=== PATIENT | female | born 1955 | race Caucasian/White ===

== ENCOUNTER 2023-04-29 09:14 | Emergency (ER) | payer OTHER, SELFPAY ==
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
[2023-04-29 09:57] VITALS: BP 122/70; BP 135/72; PULSE 82; PULSE 88; RESP 18; TEMP 36.2; O2SAT 97; O2SAT 98; BMI 29.2
--- NOTE | 2023-04-29 10:00 | MHC.CARE ---
Called [facility] and spoke with Michael. They report that she has been trying to get back into their [facility]. She has been yelling and pressured calling [facility]. She was seen by [facility] crisis 04/26 an admitted to respite 04/27. She was there for 10 hours and asked to d/c to [facility] for a dentist appt. She was not accepted back to [facility] and has since been acutely agitated. She is not known to be someone who drinks alcohol or uses substances other than THC. [facility] observes her having OP through the [employer] office but perhaps being a no show recently. She is diagnosed with Major Depressive D/O, at times w psychotic features. She has a rule out Bipolar D/o.
[2023-04-29 10:08] LABS: MANUAL DIFF FLAG NO
[2023-04-29 10:09] LABS: Basophils Absolute Auto 0.1 X10*3/uL (0.0-0.2); Eosinophils Absolute Auto 0.1 X10*3/uL (0.0-0.4); Eosinophils Percent Auto 2.1 % (0-4); Hematocrit 35.7 % (37.0-47.0); Hemoglobin 11.9 g/dl (12.0-16.0); Imm Gran Abs Auto 0.01 X10*3/uL (0.00-0.03); Imm Gran Pct Auto 0.2 % (0.0-0.4); Lymphocytes Absolute Auto 1.2 X10*3/uL (1.2-4.9); Mean Corpuscular HGB Conc 33.3 g/dl (31.0-35.0); Mean Corpuscular Hemoglobin 29.2 pg (27.0-33.0); Mean Corpuscular Volume 87.7 fL (80.0-98.0); Mean Platelet Volume 9.9 fL (9.4-12.3); Monocytes Absolute Auto 0.5 X10*3/uL (0.1-1.2); Monocytes Percent Auto 9.2 % (2-11); Neutrophils Absolute Auto 3.3 x10*3/uL (2.0-8.3); Neutrophils Percent Auto 63.5 % (45-73); Platelet Count 243 X10*3/uL (160-400); Red Blood Count 4.07 X10*6/uL (4.20-5.50); White Blood Count 5.1 X10*3/uL (4.8-10.8)
[2023-04-29 10:11] LABS: Appearance Urine Clear; Color Urine Dark Yellow; Glucose Urine UA Negative (Negative); Leukocyte Esterase Urine Small (1+) (Negative); Nitrite Urine Negative (Negative); PH 5.5 (5.0-9.0); Specific Gravity - Urine >= 1.030 (1.005-1.025); UMIC TRIGGER UACC YES; Urine Blood Negative (Negative); Urine Ketones Trace mg/dL (Negative); Urine Protein Trace mg/dL (Neg-Trace)
[2023-04-29 10:17] LABS: Amphetamine Screen Urine Not Detected (Not Detect); Barbiturates, Urine Not Detected (Not Detect); Benzodiazepines Screen Urine Not Detected (Not Detect); Cannabinoid Screen Urine POSITIVE (Not Detect); Cocaine Screen Urine Not Detected (Not Detect); Fentanyl, urine Not Detected (Not Detect); Opiate Screen Urine POSITIVE (Not Detect); Phencyclidine Screen Urine Not Detected (Not Detect)
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
[2023-04-29 10:24] LABS: Alanine Aminotransferase 26 U/L (0-31); Albumin Level 3.9 g/dL (3.5-5.0); Alkaline Phosphatase 78 U/L (39-117); Anion Gap 11 (12-20); Aspartate Amino Transferase 27 U/L (5-31); Bilirubin Direct 0.2 mg/dL (0.0-0.5); Bilirubin Total 0.4 mg/dL (0.0-1.0); Blood Urea Nitrogen 8 mg/dL (9-16); Carbon Dioxide 25 mmol/L (22-29); Chloride 109 mmol/L (96-108); Creatinine Clr Calc Pharmacy 61.2; Estimated Glomerular Filt Rate > 60; Ethanol 31 mg/dL; Glucose Random 115 mg/dL (60-115); Magnesium 2.2 mg/dL (1.6-2.6); Potassium 3.4 mmol/L (3.3-5.1); Sodium 142 mmol/L (135-145); Total Protein 6.3 g/dL (6.5-8.0)
[2023-04-29 10:31] LABS: Bacteria Urine None Seen (None Seen); Calcium Oxalate Crystals Urine Present; RBC Urine 0-2 /HPF (0-2); UACC Culture Trigger YES
--- NOTE | 2023-04-29 10:34 | PC.NURSE ---
client declined offered tylenol
--- NOTE | 2023-04-29 10:38 | PC.NURSE ---
over the counter medications have no effect on me
[2023-04-29 10:45] LABS: COVID-19 Test Negative (Negative); IDNOW Serial# BCCEAD1C
== END 2023-04-29 14:56 | disposition home or self-care (01) ==
PROVIDERS: Emergency Provider Emergency Medicine
DX: F33.1 Major depressive disorder, recurrent, moderate (principal); F17.200 Nicotine dependence, unspecified, uncomplicated; Z11.52 Encounter for screening for COVID-19; Z20.822 Contact with and (suspected) exposure to COVID-19; Z71.6 Tobacco abuse counseling; Z79.899 Other long term (current) drug therapy
CPT/HCPCS: 80048; 80076; 80307; 81001; 83735; 85025; 87086; 87635; 99284; S9485

== ENCOUNTER 2023-06-02 13:49 | Outpatient (AMB) | payer OTHER, SELFPAY ==
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
[2023-06-02 14:06] VITALS: BP 138/80; PULSE 79; O2SAT 97; BMI 30.3
== END 2023-06-02 14:43 | disposition home or self-care (01) ==
PROVIDERS: PCP Physician Assistant; Visit Provider Nurse Practitioner Family
DX: M54.6 Pain in thoracic spine (principal); G89.29 Other chronic pain; M54.50 Low back pain, unspecified; M53.3 Sacrococcygeal disorders, not elsewhere classified
CPT/HCPCS: 99204

== ENCOUNTER → 2023-06-02 13:49 | Outpatient (BNVA) | payer OTHER, SELFPAY | PROVIDERS: PCP Physician Assistant; Visit Provider Nurse Practitioner Family | DX: M54.6 Pain in thoracic spine (principal); M51.36 Other intervertebral disc degeneration, lumbar region; M53.3 Sacrococcygeal disorders, not elsewhere classified; G89.29 Other chronic pain | CPT/HCPCS: 99202 ==

== ENCOUNTER 2023-07-12 13:13 | Outpatient (AMB) | payer OTHER, SELFPAY ==
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
[2023-07-12 13:14] VITALS: BMI 28.5
== END 2023-07-12 13:54 | disposition home or self-care (01) ==
LOC: HO.PMC 13:13
PROVIDERS: PCP Physician Assistant; Visit Provider Nurse Practitioner Family
DX: M54.6 Pain in thoracic spine (principal); G89.29 Other chronic pain; M54.50 Low back pain, unspecified; M53.3 Sacrococcygeal disorders, not elsewhere classified; G62.9 Polyneuropathy, unspecified
CPT/HCPCS: 99442

== ENCOUNTER → 2023-07-12 13:13 | Outpatient (BNVA) | payer OTHER, SELFPAY | PROVIDERS: PCP Physician Assistant; Visit Provider Nurse Practitioner Family ==

== ENCOUNTER 2023-07-30 10:12 | Inpatient (IN) | payer MEDICARE, MEDICAID, SELFPAY ==
[2023-07-30 10:19] VITALS: BP 103/73; PULSE 84; RESP 18; TEMP 36.3; O2SAT 97; BMI 26.6
[2023-07-30 10:54] LABS: MANUAL DIFF FLAG NO
[2023-07-30 10:58] LABS: Appearance Urine Clear; Color Urine Yellow; Glucose Urine UA Negative (Negative); Leukocyte Esterase Urine Negative (Negative); Nitrite Urine Negative (Negative); PH 6.5 (5.0-9.0); Specific Gravity - Urine <= 1.005 (1.005-1.025); Urine Blood Negative (Negative); Urine Ketones Negative (Negative); Urine Protein Negative (Neg-Trace)
[2023-07-30 10:59] LABS: Basophils Percent Auto 0.6 % (0-2); Eosinophils Absolute Auto 0.2 X10*3/uL (0.0-0.4); Eosinophils Percent Auto 3.4 % (0-4); Hematocrit 35.9 % (37.0-47.0); Hemoglobin 12.3 g/dl (12.0-16.0); Imm Gran Abs Auto 0.01 X10*3/uL (0.00-0.03); Imm Gran Pct Auto 0.2 % (0.0-0.4); Lymphocytes Absolute Auto 1.9 X10*3/uL (1.2-4.9); Lymphocytes Percent Auto 38.8 % (20-40); Mean Corpuscular HGB Conc 34.3 g/dl (31.0-35.0); Mean Corpuscular Hemoglobin 29.7 pg (27.0-33.0); Mean Corpuscular Volume 86.7 fL (80.0-98.0); Mean Platelet Volume 9.4 fL (9.4-12.3); Monocytes Absolute Auto 0.4 X10*3/uL (0.1-1.2); Neutrophils Absolute Auto 2.4 x10*3/uL (2.0-8.3); Platelet Count 309 X10*3/uL (160-400); Red Blood Count 4.14 X10*6/uL (4.20-5.50); Red Cell Distribution Width 13.9 % (11.0-16.0)
[2023-07-30 11:00] LABS: Bacteria Urine None Seen (None Seen); Hyaline Casts Urine 0-2 /LPF (0-2); RBC Urine 0-2 /HPF (0-2); WBC Urine 0-5 /HPF (0-5)
[2023-07-30 11:07] LABS: Amphetamine Screen Urine Not Detected (Not Detect); Barbiturates, Urine Not Detected (Not Detect); Benzodiazepines Screen Urine Not Detected (Not Detect); Cannabinoid Screen Urine POSITIVE (Not Detect); Cocaine Screen Urine Not Detected (Not Detect); Fentanyl, urine Not Detected (Not Detect); Opiate Screen Urine Not Detected (Not Detect); Phencyclidine Screen Urine Not Detected (Not Detect)
[2023-07-30 11:09] LABS: Alanine Aminotransferase 12 U/L (0-31); Alkaline Phosphatase 64 U/L (39-117); Anion Gap 10 (12-20); Aspartate Amino Transferase 14 U/L (5-31); Bilirubin Total 0.4 mg/dL (0.0-1.0); Blood Urea Nitrogen 11 mg/dL (9-16); Calcium 9.3 mg/dL (8.4-10.2); Carbon Dioxide 26 mmol/L (22-29); Chloride 109 mmol/L (96-108); Creatinine Clr Calc Pharmacy 65.5; Estimated Glomerular Filt Rate > 60; Ethanol 19 mg/dL; Glucose Random 90 mg/dL (60-115); Potassium 3.7 mmol/L (3.3-5.1); Sodium 141 mmol/L (135-145); Total Protein 6.3 g/dL (6.5-8.0)
[2023-07-30 11:28] LABS: Acetaminophen LAB < 3 mcg/mL (<30); Salicylate < 5.0 mg/dL (15-30)
[2023-07-30 11:30] LABS: COVID-19 Test Negative (Negative); IDNOW Serial# 08D9AD1C
--- NOTE | 2023-07-30 12:12 | ED_ITS ---
HPI - Psych General Chief Complaint: Psychiatric Symptoms Stated Complaint: Crisis Time Seen by Provider: 07/30/23 12:09 Source: patient and RN notes reviewed Mode of arrival: ambulatory Limitations: no limitations History of Present Illness HPI Narrative: This is a 68-year-old female, with a past history of depression, COPD, and history of breast cancer currently in remission presenting to the emergency department due to feeling very depressed. Patient states that over the last several months she has been struggling due to her daughter not allowing her to see her grandchild as she smokes marijuana every once in awhile. She denies any suicidal or homicidal ideations. No visual or auditory hallucinations. She also reports that she has not been eating as much due to her feeling as though she has lots of stress. Denies any fevers, chills, chest pain, shortness breast, abdominal pain, nausea, vomiting or diarrhea. She states that she drank alcohol last night, she does not drink alcohol regularly, denies any other drug use. She has a smoker, smokes 1 pack of cigarettes per day. No other complaints or concerns at this time. MD complaint: feels depressed Duration: constant History of same: No Relieving factors: none Exacerbating factors: none Associated symptoms: denies other symptoms Treatments prior to arrival: none Related Data Home Medications Medication Instructions Recorded Confirmed albuterol sulfate 90 mcg/actuation 2 puff inhalation Q4H PRN dyspnea 07/30/23 07/30/23 aerosol inhaler (Ventolin HFA) fluticasone fur. 200 mcg-umeclid 1 ea inhalation DAILY 07/30/23 07/30/23 62.5 mcg-vilant 25 mcg inhalat.powder (Trelegy Ellipta) naproxen 500 mg tablet 500 mg PO BID PRN pain 07/30/23 07/30/23 nicotine 21 mg/24 hr daily 1 patch topical DAILY 07/30/23 07/30/23 transdermal patch quetiapine 25 mg tablet 25 mg PO BID 07/30/23 07/30/23 Allergies Allergy/AdvReac Type Severity Reaction Status Date / Time acetaminophen [From Percocet] Allergy Unknown Itching Verified 07/12/23 13:15 olanzapine Allergy Unknown other Verified 07/12/23 13:15 oxycodone [From Percocet] Allergy Unknown Itching Verified 07/12/23 13:15 Review of Systems 2 Review of Systems: Yes all other systems are reviewed and are negative Constitutional: Constitutional: Reports as per [facility] Past Medical History Attestation statement: The following information was validated with the patient. Medical History Lumbar degenerative disc disease Chronic thoracic spine pain Depression UTI (urinary tract infection) COPD (chronic obstructive pulmonary disease) Surgical History H/O lumpectomy Social History Social History Alcohol intake: current Patient Tobacco Use Status: Current everyday Tobacco user Tobacco use type: Cigarette Cigarette Packs Per Day: 0.5 Substance Use Type: Crack/Cocaine and Marijuana Advance Directives: No Advance Directives Information Provided: No Healthcare Proxy: Yes Guardian: No Physical Exam 2 Vital Signs: Vital Signs: Last Vital Signs Temp 97 F 07/30/23 20:54 Pulse 88 07/30/23 20:54 Resp 17 07/30/23 20:54 BP 123/77 07/30/23 20:54 Pulse Ox 97 07/30/23 20:54 O2 Del Method Room Air 07/30/23 20:54 BMI result Body Mass Index 26.6 Const: General: cooperative, comfortable and no acute distress O rientation/consciousness: patient oriented x3 Limitations: no limitations HEENT: Head: Yes normal to inspection, Yes normocephalic and Yes atraumatic Ears: hearing grossly normal bilaterally General nose exam: Normal external nose present Face and sinus: Yes normal facial exam Mouth: Normal oral and palatal mucosa present, oropharynx normal and moist mucous membranes Throat: Yes posterior oropharynx normal Eyes: General: appearance normal, both eyes and all related structures E yelids: Yes eyelids normal Conjunctivae: conjunctivae normal Sclerae: s clerae normal Pupils: Equal, round and reactive pupils present EOM: EOMs intact bilaterally Neck: Neck: Yes normal visual inspection, Yes full ROM and Yes no lymphadenopathy Lymphatic: no lymphadenopathy noted Chest: Chest palpation & inspection: normal inspection of the chest Resp: Effort & Inspection: normal respiratory effort and able to speak in complete sentences Auscultation: clear to auscultation bilaterally, no crackles, no rales, no rhonchi and no wheezes Cardio: Rate: regular rate Rhythm: regular rhythm Heart sounds: S1 normal heart sound present and S2 normal heart sound present GI: Other: Abdomen is soft, nontender, nondistended Inspection: Yes normal to inspection Skin: General skin exam: no rashes or lesions noted Trauma: no lacerations or abrasions Wounds: no wounds Neuro: General: patient oriented x3 and moves all extremities Cranial nerves: Yes Equal, round and reactive pupils present Extrem: General: Yes normal to inspection Right upper extremity: normal to inspection Left upper extremity: normal to inspection Right lower extremity: normal to inspection Left lower extremity: normal to inspection Course Reevaluation(s) Reevaluation #1: Continue physician observation, patient is an inpatient bed search and did require medication restrained overnight. She is otherwise clinically stable at this time. Time: 07:25 Medications Administered Generic Name Dose Route Start Last Admin Trade Name Freq PRN Reason Stop Dose Admin Fluticasone/Umeclidinium/Vilanterol 1 puff 07/30/23 16:00 07/30/23 16:05 Fluticasone/Umeclidinium/Vilanterol 200/62.5/25 Blst.W.Dev INHALE Not Given RDAILY DK Lorazepam 2 mg 07/30/23 18:16 07/31/23 04:16 Lorazepam 1 Mg Tablet PO 2 mg Q4H PRN Administration Anxiety, agitation Naproxen 500 mg 07/30/23 15:49 07/30/23 16:12 Naproxen 500 Mg Tablet PO 500 mg BID PRN Administration Pain, Moderate(Pain Scale 4-6) Nicotine 21 mg 07/30/23 16:00 07/30/23 16:04 Nicotine 21 Mg Patch.Td24 TRANSDERMA Not Given DAILY DK Quetiapine Fumarate 25 mg 07/30/23 21:00 07/30/23 20:25 Quetiapine Fumarate 25 Mg Tablet PO Not Given BID DK Discontinued Medications Generic Name Dose Route Start Last Admin Trade Name Freq PRN Reason Stop Dose Admin Haloperidol Lactate 10 mg 07/30/23 20:46 07/30/23 21:04 Haloperidol Lactate 5 Mg/Ml Vial IM 07/30/23 20:47 10 mg STAT STA Administration Lorazepam 2 mg 07/30/23 18:16 07/30/23 18:18 Lorazepam 1 Mg Tablet PO 07/30/23 18:17 2 mg ONCE STA Administration Midazolam HCl 2 mg 07/30/23 20:46 07/30/23 21:02 Midazolam Hcl/Pf 2 Mg/2 Ml Vial IM 07/30/23 20:47 2 mg ONCE ONE Administration Medical Decision Making Medical Decision Making [facility] Narrative: This is a 68-year-old female, with a past history of depression, COPD, and history of breast cancer currently in remission, presenting to the emergency department for evaluation of feeling very depressed. She denies any SI or HI. She does admit to alcohol use last night, but does not drink every day. Denies history of alcohol withdrawal seizures. Endorses using marijuana, no other drugs. On arrival, vital signs within normal limits. She has a normal physical exam. She has not suicidal or homicidal. No SI or HI. She has no physical complaints. Labs were obtain, no leukocytosis, stable H&H, chemistry within normal limits. Urine does not appear to be infected. Positive for marijuana otherwise urine drug screen unremarkable. She tested negative for COVID. Given normal lab workup, and no physical complaints, patient is medically cleared to see the care team. Differential Diagnosis Differential Diagnoses: The differential diagnosis associated with the presentation includes Depression, anxiety, SI, HI, substance use disorder Lab Data [facility] Lab Attestation statement: I reviewed the patient's lab results. No leukocytosis, stable H&H, chemistry within normal limits, UA noninfected. Negative drug screen, COVID negative. 07/30/23 10:48 07/30/23 10:48 Labs: Lab Results 07/30/23 Range/Units 10:48 WBC 5.0 (4.8-10.8) X10*3/uL RBC 4.14 L (4.20-5.50) X10*6/uL Hgb 12.3 (12.0-16.0) g/dl Hct 35.9 L (37.0-47.0) % MCV 86.7 (80.0-98.0) fL MCH 29.7 (27.0-33.0) pg MCHC 34.3 (31.0-35.0) g/dl RDW 13.9 (11.0-16.0) % Plt Count 309 D (160-400) X10*3/uL MPV 9.4 (9.4-12.3) fL Immature Gran % (Auto) 0.2 (0.0-0.4) % Neut % (Auto) 49.0 (45-73) % Lymph % (Auto) 38.8 (20-40) % Nuckolls % (Auto) 8.0 (2-11) % Eos % (Auto) 3.4 (0-4) % Baso % (Auto) 0.6 (0-2) % Lymph # (Auto) 1.9 (1.2-4.9) X10*3/uL Nuckolls # (Auto) 0.4 (0.1-1.2) X10*3/uL Eos # (Auto) 0.2 (0.0-0.4) X10*3/uL Baso # (Auto) 0.0 (0.0-0.2) X10*3/uL Abs Immat Gran (auto) 0.01 (0.00-0.03) X10*3/uL Absolute Neuts (auto) 2.4 (2.0-8.3) x10*3/uL Absolute Nucleated RBC 0.000 (0.0-0.012) X10*3/uL Nucleated RBC % (auto) 0.0 (0.0-0.2) /100WBC Sodium 141 (135-145) mmol/L Potassium 3.7 (3.3-5.1) mmol/L Chloride 109 H (96-108) mmol/L Carbon Dioxide 26 (22-29) mmol/L Anion Gap 10 L (12-20) BUN 11 (9-16) mg/dL Creatinine 0.75 (0.5-1.4) mg/dL Estim Creat Clear Calc 65.5 Estimated GFR > 60 Random Glucose 90 (60-115) mg/dL Calcium 9.3 (8.4-10.2) mg/dL Total Bilirubin 0.4 (0.0-1.0) mg/dL AST 14 (5-31) U/L ALT 12 (0-31) U/L Alkaline Phosphatase 64 (39-117) U/L Total Protein 6.3 L (6.5-8.0) g/dL Albumin 4.0 (3.5-5.0) g/dL Urine Color Yellow Urine Appearance Clear Urine pH 6.5 (5.0-9.0) Ur Specific [place] <= 1.005 (1.005-1.025) Urine Protein Negative (Neg-Trace) mg/dL Urine Glucose (UA) Negative (Negative) mg/dL Urine Ketones Negative (Negative) mg/dL Urine Blood Negative (Negative) Urine Nitrite Negative (Negative) Ur Leukocyte Esterase Negative (Negative) Urine RBC 0-2 (0-2) /HPF Urine WBC 0-5 (0-5) /HPF Ur Squamous Epith Cells 3-5 (0-2) /HPF Urine Bacteria None Seen (None Seen) Hyaline Casts 0-2 (0-2) /LPF Salicylates < 5.0 L (15-30) mg/dL Urine Opiates Screen Not Detected (Not Detect) Urine Fentanyl Screen Not Detected (Not Detect) Acetaminophen < 3 (<30) mcg/mL Ur Barbiturates Screen Not Detected (Not Detect) Ur Phencyclidine Scrn Not Detected (Not Detect) Ur Amphetamines Screen Not Detected (Not Detect) U Benzodiazepines Scrn Not Detected (Not Detect) Urine Cocaine Screen Not Detected (Not Detect) U Marijuana (THC) Screen POSITIVE H (Not Detect) Ethyl Alcohol 19 mg/dL COVID-19 (YULISSA) Negative (Negative) COVID-19 Clin Com See Note Discharge Plan Discharge Clinical Impression: Depression Patient Disposition: Still a Patient Prescriptions: No Action quetiapine 25 mg tablet 25 mg PO BID nicotine 21 mg/24 hr patch 24 hour 1 patch topical DAILY albuterol sulfate [Ventolin HFA] 90 mcg/actuation HFA aerosol inhaler 2 puff INHALATION Q4H PRN (Reason: dyspnea) naproxen 500 mg tablet 500 mg PO BID PRN (Reason: pain) Trelegy Ellipta 200-62.5-25 mcg blister with device 1 ea INHALATION DAILY Interventions: [place]-Suicide Risk Severity Scale Last Done: 07/31/23 02:10
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
[2023-07-30] MEDS: NaPROXEN 500 MG TABLET PO (16:12)
[2023-07-30 17:01] VITALS: RESP 18
--- NOTE | 2023-07-30 17:25 | PC.NURSE ---
Jaelyn continues to pace the unit and have moments of sudden anger and crying. She verbalizes she is lonely at home and has been trying to make appointments with different providers but has not been able to get in anywhere. Appetite good. Naproxen given for back pain with moderate relief.
[2023-07-30] MEDS: LORazepam 1 MG TABLET 2 MG PO (18:18)
--- NOTE | 2023-07-30 18:20 | PC.NURSE ---
Jaelyn was escalating and began to slam doors and throw cups in her room again. 2mg Lorazepam ordered and given. Jaelyn verbalized all I wanted was some fucking benzos and it took you all day to do it .
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
[2023-07-30 20:54] VITALS: BP 123/77; PULSE 88; RESP 17; TEMP 36.1; O2SAT 97
[2023-07-30] MEDS: Midazolam HCl/PF 2 MG/2 ML VIAL IM (21:02)
[2023-07-30] MEDS: Haloperidol Lactate 5 MG/ML VIAL 10 MG IM (21:04)
[2023-07-31] MEDS: LORazepam 1 MG TABLET 2 MG PO (04:16)
[2023-07-31] MEDS: NaPROXEN 500 MG TABLET PO (07:45)
[2023-07-31] MEDS: QUEtiapine Fumarate 25 MG TABLET PO ×2 (07:45→20:51)
[2023-07-31] MEDS: Fluticasone/Umeclidinium/Vilanterol 200/62.5/25 BLST.W.DEV 1 PUFF INHALE (09:20)
[2023-07-31 14:22] VITALS: RESP 18
[2023-07-31 16:19] VITALS: BP 134/77; PULSE 76; RESP 16; TEMP 36.8; O2SAT 98
--- NOTE | 2023-07-31 16:35 | PC.NURSE ---
Jaelyn OOB this shift for breakfast and then returned to bed and slept for several hours until lunch. Some periods of agitation but she was able to be redirected to her room. Appetite good. Adherent with medications. Reasonable behavioral control.
--- NOTE | 2023-07-31 16:36 | MHC.CARE ---
RAD Team conducted [place] bed [place] for this pt. Bed search is exhausted and will resume tomorrow if deemed necessary
--- NOTE | 2023-08-01 | ECG_ITS ---
Test Reason : MED CLEAR Blood Pressure : / mmHG Vent. Rate : 086 BPM Atrial Rate : 086 BPM P-R Int : 134 ms QRS Dur : 086 ms QT Int : 372 ms P-R-T Axes : 062 062 053 degrees QTc Int : 445 ms Normal sinus rhythm Normal ECG No previous ECGs available Referred By: Cindy Francois Electronically Signed By:KANDICE MATHEW
[2023-08-01 03:14] VITALS: BP 137/77; PULSE 84; RESP 17; TEMP 36.1; O2SAT 98
[2023-08-01] MEDS: LORazepam 1 MG TABLET 2 MG PO ×2 (03:20→11:44)
[2023-08-01] MEDS: NaPROXEN 500 MG TABLET PO ×2 (03:20→14:48)
--- NOTE | 2023-08-01 03:28 | PC.NURSE ---
Pt out to nurses station reporting back discomfort and anxiety. Pt medicated with PRN Naproxen and Ativan. Pt also given a sandwich, milk and warm pack.
[2023-08-01] MEDS: Fluticasone/Umeclidinium/Vilanterol 200/62.5/25 BLST.W.DEV 1 PUFF INHALE (08:51)
[2023-08-01] MEDS: QUEtiapine Fumarate 25 MG TABLET PO (08:52)
--- NOTE | 2023-08-01 09:00 | PC.NURSE ---
Assumed care of this pt at 0700. Pt in her room talking on the telephone. She asked staff to call [employer] for her b/c they dropped the ball and we can get her insurance reinstated. Pt denies si/hi, she denies auditory/visual hallucinations. No issues observed or reported. Pt refused he Nicotine patch, I don't need it . Will continue to observe.
[2023-08-01 11:33] VITALS: BP 132/84; PULSE 79; RESP 19; TEMP 36.4; O2SAT 97
--- NOTE | 2023-08-01 11:42 | MHC.EDTECH ---
Pt was approached to do the EKG that was ordered. She refused. I don't want those sticky things on me. 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 I do not need that. I don't need any of this.
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
--- NOTE | 2023-08-01 12:21 | PC.NURSE ---
Assumed care of patient at 1100, patient is ambulating with steady gait around BH pod. Requesting to leave stating this all happened because I wanted a little something on the top of my seroquel to help . Pt pacing around the BH pod, explaining how she is supposed to be going to [place] soon to meet an important figure. Pt having intermittent delusions, denies SI/HI/AH
--- NOTE | 2023-08-01 12:23 | MHC.CARE ---
RAD Team conducted a statewide bedsearch, unfortunately no beds available statewide (both adult and ana).RAD Team to continue bedsearch tomorrow (08/02) if deemed necessary
[2023-08-01] MEDS: QUEtiapine Fumarate 100 MG TABLET PO (14:48)
--- NOTE | 2023-08-01 15:51 | MHC.EDTECH ---
BELONGINGS MOVED FROM LOCKER #3 TO LOCKER #1 IN POD
--- NOTE | 2023-08-01 16:13 | PHA.MEDREC ---
Pharmacy Consult ? Medication Reconciliation Pharmacy has reviewed the medication reconciliation completed by
--- NOTE | 2023-08-01 17:10 | PC.NURSE ---
Pt speaking with CARE team about plan of care. Pt became angry, slamming door, yelling. Pt came to nurses station expressing upset and asking for adina serenity
--- NOTE | 2023-08-01 20:25 | PC.NURSE ---
pt very drowsy due to previous medication administration, 9pm seroquel will be held due at this time
[2023-08-01 23:30] VITALS: BP 134/79; PULSE 106; TEMP 36.5; O2SAT 99
[2023-08-02] MEDS: NaPROXEN 500 MG TABLET PO ×2 (04:22→17:27)
[2023-08-02] MEDS: Nicotine 21 MG PATCH.TD24 TRANSDERMA (08:20)
[2023-08-02] MEDS: LORazepam 1 MG TABLET PO (08:21)
[2023-08-02] MEDS: QUEtiapine Fumarate 100 MG TABLET PO ×3 (08:21→20:26)
[2023-08-02] MEDS: Fluticasone/Umeclidinium/Vilanterol 200/62.5/25 BLST.W.DEV 1 PUFF INHALE (08:22)
[2023-08-02 08:29] LABS: COVID-19 Test Negative (Negative); IDNOW Serial# 152EDE1D
[2023-08-02 08:52] VITALS: BP 150/83; PULSE 87; RESP 16; TEMP 37.2; O2SAT 98
--- NOTE | 2023-08-02 11:52 | PC.NURSE ---
Assumed care of patient at 1100, patient ambulating independently throughout BH pod, verbalizes displeasure of being on a Sec 12. Pt educated regarding matter and redirected without issue. Pt is now speaking with other staff members as a distraction, singing and dancing. Pt in no apparent distress, respirations even and unlabored, skin pwd, alert and oriented x4. Continue plan of care for ana-psych bedsearch
[2023-08-02 14:05] VITALS: BP 145/78; PULSE 78; RESP 91; TEMP 36.2; O2SAT 99
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
[2023-08-02 19:50] VITALS: BP 144/66; PULSE 100; RESP 16; TEMP 36.1; O2SAT 98
[2023-08-03] MEDS: NaPROXEN 500 MG TABLET PO ×2 (03:02→18:41)
[2023-08-03 08:00] VITALS: BP 137/73; PULSE 85; RESP 18; TEMP 36.2; O2SAT 98
[2023-08-03 08:21] LABS: Estimated Average Glucose 97 mg/dL
[2023-08-03 08:35] LABS: Alanine Aminotransferase 14 U/L (0-31); Albumin Level 3.9 g/dL (3.5-5.0); Alkaline Phosphatase 70 U/L (39-117); Anion Gap 12 (12-20); Aspartate Amino Transferase 18 U/L (5-31); Bilirubin Total 0.3 mg/dL (0.0-1.0); Blood Urea Nitrogen 24 mg/dL (9-16); Calcium 8.9 mg/dL (8.4-10.2); Carbon Dioxide 27 mmol/L (22-29); Chloride 103 mmol/L (96-108); Cholesterol 190 mg/dL (<200); Estimated Glomerular Filt Rate > 60; Glucose Fasting 104 mg/dL (60-99); HDL Cholesterol 45 mg/dL (>40); LDL Cholesterol Calculated 90 mg/dL (<100); Potassium 4.2 mmol/L (3.3-5.1); Sodium 138 mmol/L (135-145); Total Protein 6.3 g/dL (6.5-8.0); Triglycerides 278 mg/dL (<150)
[2023-08-03 08:50] LABS: Thyroid Stimulating Hormone 0.46 uIU/mL (0.32-4.0)
[2023-08-03] MEDS: QUEtiapine Fumarate 100 MG TABLET PO ×2 (08:53→13:24)
[2023-08-03 08:56] LABS: Vitamin B12 339 pg/mL (200-900)
--- NOTE | 2023-08-03 09:59 | P.PNPSI_ITS ---
Subjective Subjective Date of Service: 08/03/23 Reason For Visit: Zena Subjective Notes: Conditional Voluntary Interim History: The nursing staff reported the patient had being disorganized times, with fast speech she denies suicidal or homicidal ideation. She slept only 3 hours last night. On interview the patient is expansive, with grandiose delusions no changes in her mental status with Seroquel 100 mg p.o. t.i.d.. We are going to increase slightly Seroquel at night up to 200 mg p.o. q.h.s. to target insomnia and mood lability. Mental Status Exam Mental Status Exam Patient Appearance: Well Grooomed and Appropriate (She is wearing a positive note with her name on.) Patient Orientation: Person and Situation Level of Consciousness: Awake and Restless Patient Behavior: Talkative and Good Eye Contact Mood Description: Cheerful and Anxious Affect Description: Labile Patient Cognition Impaired: No Ability to Follow Directions: Fair Speech Pattern: Clear and Rapid Hallucinations: None Delusions: Grandiose Thought Process: Racing and Distracted Thought Content: positive for [place], positive for Loose Associations and positive for Tangential Judgement: Poor Diagnostics Vital Signs (24Hr): Vital Signs - 24 hr 08/02/23 14:05 08/02/23 19:50 Temperature 97.1 F 97 F Pulse Rate 78 100 Respiratory Rate 91 H 16 Blood Pressure 145/78 H 144/66 H Pulse Oximetry 99 98 Oxygen Delivery Method Room Air Room Air BMI result Body Mass Index 26.6 Labs 07/30/23 10:48 08/03/23 07:52 Labs: Laboratory Results - last 48 hr 08/02/23 08/03/23 07:54 07:52 Sodium 138 Potassium 4.2 Chloride 103 Carbon Dioxide 27 Anion Gap 12 BUN 24 H Creatinine 0.78 Estim Creat Clear Calc 63.0 Estimated GFR > 60 Fasting Glucose 104 H Estimat Average Glucose 97 Hemoglobin A1c % 5.0 Calcium 8.9 Total Bilirubin 0.3 AST 18 ALT 14 Alkaline Phosphatase 70 Total Protein 6.3 L Albumin 3.9 Triglycerides 278 H Cholesterol 190 LDL Cholesterol, Calc 90 HDL Cholesterol 45 Vitamin B12 339 TSH 0.46 COVID-19 ([facility]ISSA) Negative COVID-19 Clin Com See Note Medications Medications Current Medications Acetaminophen (Acetaminophen 325 Mg Tablet) 650 mg PO Q6H PRN PRN Reason: Headache/Pain Mild Scale (1-3) Al Hydroxide/Mg Hydroxide (Magnesium Hydrox/Alum Hydrox 30 Ml Oral.Susp) 30 ml PO Q6H PRN PRN Reason: Heartburn/Nausea Albuterol Sulfate (Albuterol Sulfate 90 Mcg 8 Gm Inhaler) 2 puff INHALE Q4H PRN PRN Reason: dyspnea Fluticasone/Umeclidinium/Vilanterol (Fluticasone/Umeclidinium/Vilanterol 200/62.5/25 Blst.W.Dev) 1 puff INHALE RDAILY [facility] Last Admin: 08/02/23 08:22 Dose: 1 puff Lorazepam (Lorazepam 1 Mg Tablet) 1 mg PO Q6H PRN PRN Reason: Anxiety, agitation Last Admin: 08/02/23 08:21 Dose: 1 mg Magnesium Hydroxide (Milk Of Magnesia 30 Ml Oral.Susp) 30 ml PO DAILY PRN PRN Reason: Constipation Naproxen (Naproxen 500 Mg Tablet) 500 mg PO BID PRN PRN Reason: Pain, Moderate(Pain Scale 4-6) Last Admin: 08/03/23 03:02 Dose: 500 mg Nicotine (Nicotine 21 Mg Patch.Td24) 21 mg TRANSDERMA DAILY [facility] Last Admin: 08/03/23 09:38 Dose: Not Given Quetiapine Fumarate (Quetiapine Fumarate 50 Mg Tablet) 50 mg PO Q4H PRN PRN Reason: agitation Quetiapine Fumarate (Quetiapine Fumarate 100 Mg Tablet) 100 mg PO BID@0830,1330 [facility] Quetiapine Fumarate (Quetiapine Fumarate 200 Mg Tablet) 200 mg PO BEDTIME [facility] Trazodone HCl (Trazodone Hcl 50 Mg Tablet) 50 mg PO BEDTIME PRN PRN Reason: Insomnia Allergies Allergies Allergy/AdvReac Type Severity Reaction Status Date / Time acetaminophen [From Percocet] Allergy Unknown Itching Verified 08/02/23 13:14 olanzapine Allergy Unknown other Verified 08/02/23 13:14 oxycodone [From Percocet] Allergy Unknown Itching Verified 08/02/23 13:14 Assessment & Plan Assessment & Plan (1) Bipolar 1 disorder, mixed, severe: Status: Acute Code(s): F31.63 - Bipolar disorder, current episode mixed, severe, without psychotic features Plan Ms. Sellers is a 68 year-old woman with hx of Bipolar Disorder who presents with a mixed episode including some grandiose ideas of being in relationship with Lokesh Golden and having a business and at the same time reporting depressed mood. She presents with a labile mood, no insight into her illness or need for treatment. Utox positive for cannabinoids. We discussed risks, benefits and alternative treatment options. She may benefit from mood stabilizer at this time, reluctant to try depakote or lithium. She agrees to increase dose of seroquel. PLAN 1. inpatient level of care for safety, containment and medication management. 2. increase seroquel to 100mg po b.i.d. and increase Seroquel up to 200 mg p.o. q.h.s. to target insomnia and mood lability on August 03. Reason for continued inpatient stay Substantial Risk for: inability to function, rapid decompensation and med/psych decompensation Time Spent With Patient Time: Total time managing care of this patient today __20__ minutes.
[2023-08-03] MEDS: Fluticasone/Umeclidinium/Vilanterol 200/62.5/25 BLST.W.DEV 1 PUFF INHALE (10:30)
--- NOTE | 2023-08-03 14:27 | MHC.CLN ---
NUTRITION CONSULT FOR WEIGHT LOSS. PATIENT REPORTED TO THIS CARDIAC NURSE THAT SHE HAS LOST 52# SINCE JANUARY. DESCRIBED DRUG USE AND NOT BEING ABLE TO SEE GRANDCHILDREN CONTRIBUTOR TO WEIGHT LOSS. REPORTS THAT EATING VERY WELL HERE (75% AT B AND L TODAY). REVIEW OF WEIGHT HX SHOWS -9.1% WEIGHT LOSS X 3 MONTHS. APPEARS WELL NOURISHED. NO ADDITIONAL NUTRITION INTERVENTIONS AT THIS TIME.
[2023-08-03] MEDS: QUEtiapine Fumarate 50 MG TABLET PO (17:42)
[2023-08-03 19:45] VITALS: BP 147/76; PULSE 93; RESP 16; TEMP 36.5; O2SAT 98
[2023-08-03] MEDS: QUEtiapine Fumarate 200 MG TABLET PO (19:53)
[2023-08-03] MEDS: Simethicone 80 MG TAB.CHEW PO (21:28)
[2023-08-04] MEDS: NaPROXEN 500 MG TABLET PO ×3 (05:32→20:39)
[2023-08-04 07:00] VITALS: BMI 29.9
[2023-08-04 08:00] VITALS: BP 138/72; PULSE 85; RESP 18; TEMP 36; O2SAT 98
[2023-08-04] MEDS: Fluticasone/Umeclidinium/Vilanterol 200/62.5/25 BLST.W.DEV 1 PUFF INHALE (08:31)
[2023-08-04] MEDS: QUEtiapine Fumarate 100 MG TABLET PO ×2 (08:31→13:51)
[2023-08-04] MEDS: Albuterol Sulfate 90 MCG 8 GM INHALER 2 PUFF INHALE ×2 (10:47→23:53)
[2023-08-04] MEDS: QUEtiapine Fumarate 50 MG TABLET PO (11:55)
--- NOTE | 2023-08-04 13:09 | P.PNPSI_ITS ---
Subjective Subjective Date of Service: 08/04/23 Reason For Visit: Zena Subjective Notes: Conditional Voluntary Interim History: The nursing staff reported the patient signed a 3 day notice. She had been labile manic with fast speech but participating in groups. She slept poorly only 2 hours last night. On interview we discussed I asked her to recanted her 3 day notice since we need to increase more the Seroquel and she agreed on the plan. She complained of onychomycosis, dry nose and asthma attacks. We did some changes on his regular medications. She agreed to increase Seroquel up to 300 mg p.o. q.h.s. to target insomnia and mood lability. Mental Status Exam Mental Status Exam Patient Appearance: Well Grooomed and Appropriate Patient Orientation: Person and Situation Level of Consciousness: Awake and Appropriate Patient Behavior: Passive Mood Description: Calm Affect Description: Labile Patient Cognition Impaired: No Ability to Follow Directions: Fair Speech Pattern: Rapid Hallucinations: None Delusions: Grandiose and Ideas of Reference Thought Process: Racing and Distracted Thought Content: positive for [place] and positive for [place] Judgement: Fair Diagnostics Vital Signs (24Hr): Vital Signs - 24 hr 08/03/23 19:45 08/04/23 08:00 Temperature 97.7 F 96.8 F Pulse Rate 93 85 Respiratory Rate 16 18 Blood Pressure 147/76 H 138/72 Pulse Oximetry 98 98 Oxygen Delivery Method Room Air Room Air BMI result Body Mass Index 29.9 Labs 07/30/23 10:48 08/03/23 07:52 Labs: Laboratory Results - last 48 hr 08/03/23 07:52 Sodium 138 Potassium 4.2 Chloride 103 Carbon Dioxide 27 Anion Gap 12 BUN 24 H Creatinine 0.78 Estim Creat Clear Calc 63.0 Estimated GFR > 60 Fasting Glucose 104 H Estimat Average Glucose 97 Hemoglobin A1c % 5.0 Calcium 8.9 Total Bilirubin 0.3 AST 18 ALT 14 Alkaline Phosphatase 70 Total Protein 6.3 L Albumin 3.9 Triglycerides 278 H Cholesterol 190 LDL Cholesterol, Calc 90 HDL Cholesterol 45 Vitamin B12 339 TSH 0.46 Medications Medications Current Medications Acetaminophen (Acetaminophen 325 Mg Tablet) 650 mg PO Q6H PRN PRN Reason: Headache/Pain Mild Scale (1-3) Al Hydroxide/Mg Hydroxide (Magnesium Hydrox/Alum Hydrox 30 Ml Oral.Susp) 30 ml PO Q6H PRN PRN Reason: Heartburn/Nausea Albuterol Sulfate (Albuterol Sulfate 90 Mcg 8 Gm Inhaler) 2 puff INHALE Q4H PRN PRN Reason: dyspnea Last Admin: 08/04/23 10:47 Dose: 2 puff Fluticasone/Umeclidinium/Vilanterol (Fluticasone/Umeclidinium/Vilanterol 200/62.5/25 Blst.W.Dev) 1 puff INHALE RDAILY [facility] Last Admin: 08/04/23 08:31 Dose: 1 puff Lorazepam (Lorazepam 1 Mg Tablet) 1 mg PO Q6H PRN PRN Reason: Anxiety, agitation Last Admin: 08/02/23 08:21 Dose: 1 mg Magnesium Hydroxide (Milk Of Magnesia 30 Ml Oral.Susp) 30 ml PO DAILY PRN PRN Reason: Constipation Naproxen (Naproxen 500 Mg Tablet) 500 mg PO Q4H PRN PRN Reason: Pain, Moderate(Pain Scale 4-6) Last Admin: 08/04/23 11:54 Dose: 500 mg Nicotine (Nicotine 21 Mg Patch.Td24) 21 mg TRANSDERMA DAILY [facility] Last Admin: 08/04/23 08:33 Dose: Not Given Quetiapine Fumarate (Quetiapine Fumarate 50 Mg Tablet) 50 mg PO Q4H PRN PRN Reason: agitation Last Admin: 08/04/23 11:55 Dose: 50 mg Quetiapine Fumarate (Quetiapine Fumarate 100 Mg Tablet) 100 mg PO BID@0830,1330 [facility] Last Admin: 08/04/23 08:31 Dose: 100 mg Quetiapine Fumarate (Quetiapine Fumarate 200 Mg Tablet) 200 mg PO BEDTIME [facility] Last Admin: 08/03/23 19:53 Dose: 200 mg Trazodone HCl (Trazodone Hcl 50 Mg Tablet) 50 mg PO BEDTIME PRN PRN Reason: Insomnia Allergies Allergies Allergy/AdvReac Type Severity Reaction Status Date / Time acetaminophen [From Percocet] Allergy Unknown Itching Verified 08/02/23 13:14 olanzapine Allergy Unknown other Verified 08/02/23 13:14 oxycodone [From Percocet] Allergy Unknown Itching Verified 08/02/23 13:14 Assessment & Plan Assessment & Plan (1) Bipolar 1 disorder, mixed, severe: Status: Acute Code(s): F31.63 - Bipolar disorder, current episode mixed, severe, without psychotic features Plan The patient is an elderly female with a past history of bipolar disorder who was brought to the facility since she complained exacerbation of depression with suicidal ideation but it was clear that the patient had manic symptoms. The patient does not have current providers in the area and she had been on compliant with treatment. Even though that she has having a mixed episode with depression and zena, the patient has enough insight to look after help. She signed herself into the hospital and she was able to understand Muro warning. Plan 1. Continue with regular medications. 2. Continue with medical treatment. 3. Please continue Seroquel 100 mg p.o. t.i.d. as mood stabilizers. We have been titrating the Seroquel at night on August 04 we are increasing up to 300 mg p.o. q.h.s. and keep 100 mg p.o. b.i.d.. 4. Gather collateral information. 5. Continue 15 minute checks. 6. Reassessment with results. Reason for continued inpatient stay Substantial Risk for: inability to function, rapid decompensation and med/psych decompensation Time Spent With Patient Time: Total time managing care of this patient today __20__ minutes.
[2023-08-04 18:00] VITALS: BP 138/78; PULSE 102; RESP 18; TEMP 36.1; O2SAT 97
[2023-08-04] MEDS: QUEtiapine Fumarate 300 MG TABLET PO (20:36)
[2023-08-04] MEDS: LORazepam 1 MG TABLET PO (20:41)
[2023-08-05] MEDS: NaPROXEN 500 MG TABLET PO (05:30)
[2023-08-05 06:00] VITALS: BP 139/76; PULSE 90; RESP 18; TEMP 36.6; O2SAT 96
[2023-08-05] MEDS: Fluticasone/Umeclidinium/Vilanterol 200/62.5/25 BLST.W.DEV 1 PUFF INHALE (09:05)
[2023-08-05] MEDS: QUEtiapine Fumarate 100 MG TABLET PO ×2 (09:05→15:03)
[2023-08-05] MEDS: LORazepam 1 MG TABLET PO ×2 (12:07→17:46)
--- NOTE | 2023-08-05 14:15 | P.PNPSI_ITS ---
Subjective Subjective Date of Service: 08/05/23 Reason For Visit: Zena Subjective Notes: Conditional Voluntary and 3 Day Interim History: THE NURSING STAFF REPORTED THE PATIENT SIGNED A 3 DAY NOTICE YESTERDAY AFTER SHE WAS FEELING OFFENDED, SHE HAD BEEN HYPERVERBAL VERY LABILE. SHE SLEPT 4 HOURS. THE [employer] ANDROID DEVELOPER REPORTED THAT SHE CALLED THE POLICE ON HER [place] THERE NO OPEN CASES IN HER CASE. WE TALKED WITH THE PATIENT TREATMENT OPTIONS AND SHE AGREED TO INCREASED UP TO 400 MG SEROQUEL AT NIGHT. Mental Status Exam Mental Status Exam Patient Appearance: Appropriate Patient Orientation: Person and Situation Level of Consciousness: Awake Patient Behavior: Appropriate Mood Description: Cheerful Affect Description: Labile Patient Cognition Impaired: Yes Ability to Follow Directions: Good Speech Pattern: Clear and Rapid Hallucinations: None Delusions: Paranoid Ideation and Grandiose Thought Process: Distracted and Slowed Thinking Thought Content: positive for [place] and positive for Circumstantial Judgement: Poor Diagnostics Vital Signs (24Hr): Vital Signs - 24 hr 08/04/23 18:00 08/05/23 06:00 Temperature 96.9 F 97.8 F Pulse Rate 102 H 90 Respiratory Rate 18 18 Blood Pressure 138/78 139/76 Pulse Oximetry 97 96 Oxygen Delivery Method Room Air Room Air BMI result Body Mass Index 29.9 Labs 07/30/23 10:48 08/03/23 07:52 Medications Medications Current Medications Acetaminophen (Acetaminophen 325 Mg Tablet) 650 mg PO Q6H PRN PRN Reason: Headache/Pain Mild Scale (1-3) Al Hydroxide/Mg Hydroxide (Magnesium Hydrox/Alum Hydrox 30 Ml Oral.Susp) 30 ml PO Q6H PRN PRN Reason: Heartburn/Nausea Albuterol Sulfate (Albuterol Sulfate 90 Mcg 8 Gm Inhaler) 2 puff INHALE Q4H PRN PRN Reason: dyspnea Last Admin: 08/04/23 23:53 Dose: 2 puff Fluticasone/Umeclidinium/Vilanterol (Fluticasone/Umeclidinium/Vilanterol 200/62.5/25 Blst.W.Dev) 1 puff INHALE RDAILY [facility]K Last Admin: 08/05/23 09:05 Dose: 1 puff Lorazepam (Lorazepam 1 Mg Tablet) 1 mg PO Q6H PRN PRN Reason: Anxiety, agitation Last Admin: 08/05/23 12:07 Dose: 1 mg Magnesium Hydroxide (Milk Of Magnesia 30 Ml Oral.Susp) 30 ml PO DAILY PRN PRN Reason: Constipation Naproxen (Naproxen 500 Mg Tablet) 500 mg PO Q4H PRN PRN Reason: Pain, Moderate(Pain Scale 4-6) Last Admin: 08/05/23 05:30 Dose: 500 mg Nicotine (Nicotine 21 Mg Patch.Td24) 21 mg TRANSDERMA DAILY [facility] Last Admin: 08/05/23 09:04 Dose: Not Given Quetiapine Fumarate (Quetiapine Fumarate 50 Mg Tablet) 50 mg PO Q4H PRN PRN Reason: agitation Last Admin: 08/04/23 11:55 Dose: 50 mg Quetiapine Fumarate (Quetiapine Fumarate 100 Mg Tablet) 100 mg PO BID@0830,1330 [facility] Last Admin: 08/05/23 09:05 Dose: 100 mg Quetiapine Fumarate (Quetiapine Fumarate 400 Mg Tablet) 400 mg PO BEDTIME [facility] Trazodone HCl (Trazodone Hcl 50 Mg Tablet) 50 mg PO BEDTIME PRN PRN Reason: Insomnia Allergies Allergies Allergy/AdvReac Type Severity Reaction Status Date / Time acetaminophen [From Percocet] Allergy Unknown Itching Verified 08/02/23 13:14 olanzapine Allergy Unknown other Verified 08/02/23 13:14 oxycodone [From Percocet] Allergy Unknown Itching Verified 08/02/23 13:14 Assessment & Plan Assessment & Plan (1) Bipolar 1 disorder, mixed, severe: Status: Acute Code(s): F31.63 - Bipolar disorder, current episode mixed, severe, without psychotic features Plan The patient is an elderly female with a past history of bipolar disorder who was brought to the facility since she complained exacerbation of depression with suicidal ideation but it was clear that the patient had manic symptoms. The patient does not have current providers in the area and she had been on compliant with treatment. Even though that she has having a mixed episode with depression and zena, the patient has enough insight to look after help. She signed herself into the hospital and she was able to understand Muro warning. Plan 1. Continue with regular medications. 2. Continue with medical treatment. 3. Please continue Seroquel 100 mg p.o. t.i.d. as mood stabilizers. We have been titrating the Seroquel at night on August 04 we are increasing up to 300 mg p.o. q.h.s. and keep 100 mg p.o. b.i.d.. On August 05 we increased up to 400 mg p.o. q.h.s. and keep 100 mg p.o. b.i.d. 4. Gather collateral information. 5. Continue 15 minute checks. 6. Reassessment with results. Reason for continued inpatient stay Substantial Risk for: inability to function, rapid decompensation and med/psych decompensation Time Spent With Patient Time: Total time managing care of this patient today __20__ minutes.
[2023-08-05] MEDS: QUEtiapine Fumarate 50 MG TABLET PO (16:20)
[2023-08-05 18:00] VITALS: BP 127/71; PULSE 94; RESP 18; TEMP 36.7; O2SAT 99
--- NOTE | 2023-08-05 18:53 | PC.NURSE ---
Patient observed to be loud, reactive, verbally abusive to staff and select peers intermittently throughout the day. Patient obsessively calling united states attorney, nursing superviser and others. Patient argumentative and disruptive in the milieu. Security called to have conversation with patient. Patient behavior remains unchanged. Provider notified to put orders in for phone restriction due to escalating behaviors.
[2023-08-05] MEDS: QUEtiapine Fumarate 400 MG TABLET PO (20:45)
[2023-08-06 06:00] VITALS: BP 128/77; PULSE 95; RESP 18; TEMP 36.6; O2SAT 95
[2023-08-06] MEDS: Fluticasone/Umeclidinium/Vilanterol 200/62.5/25 BLST.W.DEV 1 PUFF INHALE (08:29)
[2023-08-06] MEDS: QUEtiapine Fumarate 100 MG TABLET PO ×2 (08:30→13:58)
--- NOTE | 2023-08-06 10:25 | HO.PSYCHPN ---
Subjective Subjective Date of Service: 08/06/23 Reason For Visit: Zena Subjective Notes: 3 Day Interim History: Pt seen, reviewed with team. Experiencing zena which is quite disruptive to milieu. 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 States the show is 08/09 (verified). Asking to leave SAM. Telephone time limited last evening due to pt calling the nursing supervisor production department several times, calling airlines, booking tickets, calling security due to making herself vulnerable to being taken advantage of. Three day notice to 08/09. Accepting meds, eating and needing consistent redirection. Irritated that this va underwriter declined to discharge her immediately. Expressed anger with her sister as well for not responding promptly. Irritated that she cannot use her cell phone on the unit. Attempted to explain HIPPA concerns. Pt requesting nasal spray, foot cream, treatment of Onychomycosis. Haldol prn added to regime. Medication Compliance: Yes Side effects from medications: No Attending Groups: Intermittent Review of Systems Acute medical concerns: No Medical Review of Systems: unchanged Review of Systems Review of Systems Yes Unobtainable due to mental status Mental Status Exam Mental Status Exam Patient Appearance: Appropriate Patient Orientation: Person and Situation Level of Consciousness: Awake Patient Behavior: Appropriate Mood Description: Cheerful Affect Description: Labile Patient Cognition Impaired: Yes Ability to Follow Directions: Good Speech Pattern: Clear and Rapid Hallucinations: None Delusions: Paranoid Ideation and Grandiose Thought Process: Distracted and Slowed Thinking Thought Content: positive for [place] and positive for Circumstantial Judgement: Poor Diagnostics Vital Signs (24Hr): Vital Signs - 24 hr 08/05/23 18:00 08/06/23 06:00 Temperature 98.1 F 97.8 F Pulse Rate 94 95 Respiratory Rate 18 18 Blood Pressure 127/71 128/77 Pulse Oximetry 99 95 Oxygen Delivery Method Room Air Room Air BMI result Body Mass Index 29.9 Labs 07/30/23 10:48 08/03/23 07:52 Medications Medications Current Medications Acetaminophen (Acetaminophen 325 Mg Tablet) 650 mg PO Q6H PRN PRN Reason: Headache/Pain Mild Scale (1-3) Al Hydroxide/Mg Hydroxide (Magnesium Hydrox/Alum Hydrox 30 Ml Oral.Susp) 30 ml PO Q6H PRN PRN Reason: Heartburn/Nausea Albuterol Sulfate (Albuterol Sulfate 90 Mcg 8 Gm Inhaler) 2 puff INHALE Q4H PRN PRN Reason: dyspnea Last Admin: 08/04/23 23:53 Dose: 2 puff Fluticasone/Umeclidinium/Vilanterol (Fluticasone/Umeclidinium/Vilanterol 200/62.5/25 Blst.W.Dev) 1 puff INHALE RDAILY [facility] Last Admin: 08/06/23 08:29 Dose: 1 puff Lorazepam (Lorazepam 1 Mg Tablet) 1 mg PO Q6H PRN PRN Reason: Anxiety, agitation Last Admin: 08/05/23 17:46 Dose: 1 mg Magnesium Hydroxide (Milk Of Magnesia 30 Ml Oral.Susp) 30 ml PO DAILY PRN PRN Reason: Constipation Naproxen (Naproxen 500 Mg Tablet) 500 mg PO Q4H PRN PRN Reason: Pain, Moderate(Pain Scale 4-6) Last Admin: 08/05/23 05:30 Dose: 500 mg Nicotine (Nicotine 21 Mg Patch.Td24) 21 mg TRANSDERMA DAILY [facility] Last Admin: 08/06/23 08:30 Dose: Not Given Quetiapine Fumarate (Quetiapine Fumarate 50 Mg Tablet) 50 mg PO Q4H PRN PRN Reason: agitation Last Admin: 08/05/23 16:20 Dose: 50 mg Quetiapine Fumarate (Quetiapine Fumarate 100 Mg Tablet) 100 mg PO BID@0830,1330 [facility] Last Admin: 08/06/23 08:30 Dose: 100 mg Quetiapine Fumarate (Quetiapine Fumarate 400 Mg Tablet) 400 mg PO BEDTIME [facility] Last Admin: 08/05/23 20:45 Dose: 400 mg Trazodone HCl (Trazodone Hcl 50 Mg Tablet) 50 mg PO BEDTIME PRN PRN Reason: Insomnia Allergies Allergies Allergy/AdvReac Type Severity Reaction Status Date / Time acetaminophen [From Percocet] Allergy Unknown Itching Verified 08/02/23 13:14 olanzapine Allergy Unknown other Verified 08/02/23 13:14 oxycodone [From Percocet] Allergy Unknown Itching Verified 08/02/23 13:14 Assessment & Plan Assessment & Plan (1) Bipolar 1 disorder, mixed, severe: Status: Acute Code(s): F31.63 - Bipolar disorder, current episode mixed, severe, without psychotic features Assessment and Plan: 08/06/23 Add Haldol 5 mg bid prn severe psychosis, manic sx. [place] Nasal [place] prn Eucerin Cream to feet Asking for treatment of Onychomycosis- will need podiatry referral upon discharge. Plan The patient is an elderly female with a past history of bipolar disorder who was brought to the facility since she complained exacerbation of depression with suicidal ideation but it was clear that the patient had manic symptoms. The patient does not have current providers in the area and she had been on compliant with treatment. Even though that she has having a mixed episode with depression and zena, the patient has enough insight to look after help. She signed herself into the hospital and she was able to understand Muro warning. Plan 1. Continue with regular medications. 2. Continue with medical treatment. 3. Please continue Seroquel 100 mg p.o. t.i.d. as mood stabilizers. We have been titrating the Seroquel at night on August 04 we are increasing up to 300 mg p.o. q.h.s. and keep 100 mg p.o. b.i.d.. On August 05 we increased up to 400 mg p.o. q.h.s. and keep 100 mg p.o. b.i.d. 4. Gather collateral information. 5. Continue 15 minute checks. 6. Reassessment with results. Informed Consent: does not understand and further education needed Reason for continued inpatient stay Substantial Risk for: rapid decompensation Time Spent With Patient Time: Total time managing care of this patient today ____ minutes.
[2023-08-06] MEDS: LORazepam 1 MG TABLET PO (15:46)
[2023-08-06 18:00] VITALS: BP 139/75; PULSE 103; RESP 18; TEMP 37.2; O2SAT 98
[2023-08-06] MEDS: QUEtiapine Fumarate 400 MG TABLET PO (20:41)
[2023-08-06] MEDS: Mineral Oil/Petrolatum,White 106 GM Tube 1 APPL TOPICAL (20:41)
[2023-08-07] MEDS: Acetaminophen 325 MG TABLET 650 MG PO (02:18)
[2023-08-07] MEDS: NaPROXEN 500 MG TABLET PO ×2 (02:18→21:05)
[2023-08-07 06:00] VITALS: BP 120/74; PULSE 88; RESP 18; TEMP 36.8; O2SAT 98
[2023-08-07] MEDS: Fluticasone/Umeclidinium/Vilanterol 200/62.5/25 BLST.W.DEV 1 PUFF INHALE (08:37)
[2023-08-07] MEDS: QUEtiapine Fumarate 100 MG TABLET PO ×2 (08:38→13:33)
[2023-08-07] MEDS: LORazepam 1 MG TABLET PO (08:38)
--- NOTE | 2023-08-07 14:45 | PC.NURSE ---
Patient acting in a disruptive manner to select peers on the unit. Jaelyn continues to discuss her issues/feelings regarding her hospitalization with two dementia patients in particular who are unable to process what she is saying. This resulted in one patient devolving into sobs and the other being agitated and angry. she has been asked several times to not discuss her problelms with the patients but continues to do so. When TW attempted to explain to Jaelyn my reasoning behind asking her to stop she stated, I can say whatever I want. I'm not hurting anyone. You're not going to intimidate me into an outburst. Patient has been denied use of IPAD d/t being unable to adhere to policy of staying in her room with it. She also continues to exhibit excessive phone use attempting to coordinate air travel to [place] for [employer].
--- NOTE | 2023-08-07 17:33 | P.PNPSI_ITS ---
Subjective Subjective Date of Service: 08/07/23 Reason For Visit: Zena Interim History: Pt seen, reviewed with her team. Team report improved control. She continues to plan her trip to [employer] for the [employer]-making calls and arrangements. Compliant with medicines, resting when seen today, much calmer than yesterday. Medication Compliance: Yes Side effects from medications: No Attending Groups: No (not group appropriate yet.) Review of Systems Acute medical concerns: No Medical Review of Systems: unchanged Review of Systems Review of Systems Yes all other systems are reviewed and are negative Mental Status Exam Mental Status Exam Patient Appearance: Appropriate Patient Orientation: Person and Situation Level of Consciousness: Awake Patient Behavior: Appropriate Mood Description: Cheerful Affect Description: Labile Patient Cognition Impaired: Yes Ability to Follow Directions: Good Speech Pattern: Clear and Rapid Hallucinations: None Delusions: Paranoid Ideation and Grandiose Thought Process: Distracted and Slowed Thinking Thought Content: positive for [place] and positive for Circumstantial Judgement: Poor Diagnostics Vital Signs (24Hr): Vital Signs - 24 hr 08/06/23 18:00 08/07/23 06:00 Temperature 98.9 F 98.2 F Pulse Rate 103 H 88 Respiratory Rate 18 18 Blood Pressure 139/75 120/74 Pulse Oximetry 98 98 Oxygen Delivery Method Room Air Room Air BMI result Body Mass Index 29.9 Labs 07/30/23 10:48 08/03/23 07:52 Medications Medications Current Medications Acetaminophen (Acetaminophen 325 Mg Tablet) 650 mg PO Q6H PRN PRN Reason: Headache/Pain Mild Scale (1-3) Last Admin: 08/07/23 02:18 Dose: 650 mg Al Hydroxide/Mg Hydroxide (Magnesium Hydrox/Alum Hydrox 30 Ml Oral.Susp) 30 ml PO Q6H PRN PRN Reason: Heartburn/Nausea Albuterol Sulfate (Albuterol Sulfate 90 Mcg 8 Gm Inhaler) 2 puff INHALE Q4H PRN PRN Reason: dyspnea Last Admin: 08/04/23 23:53 Dose: 2 puff Fluticasone/Umeclidinium/Vilanterol (Fluticasone/Umeclidinium/Vilanterol 200/62.5/25 Blst.W.Dev) 1 puff INHALE RDAILY [facility] Last Admin: 08/07/23 08:37 Dose: 1 puff Haloperidol Lactate (Haloperidol Lactate Oral Conc 10 Mg/5 Ml Oral.Conc) 5 mg PO BID PRN PRN Reason: severe psychosis, agitation, zena Lorazepam (Lorazepam 1 Mg Tablet) 1 mg PO Q6H PRN PRN Reason: Anxiety, agitation Last Admin: 08/07/23 08:38 Dose: 1 mg Magnesium Hydroxide (Milk Of Magnesia 30 Ml Oral.Susp) 30 ml PO DAILY PRN PRN Reason: Constipation Multi-Ingred Cream/Lotion/Oil/Oint (Mineral Oil/Petrolatum,White 106 Gm Tube) 1 appl TOPICAL BID [facility]; Protocol Last Admin: 08/07/23 08:39 Dose: Not Given Naproxen (Naproxen 500 Mg Tablet) 500 mg PO Q4H PRN PRN Reason: Pain, Moderate(Pain Scale 4-6) Last Admin: 08/07/23 02:18 Dose: 500 mg Nicotine (Nicotine 21 Mg Patch.Td24) 21 mg TRANSDERMA DAILY [facility] Last Admin: 08/07/23 08:39 Dose: Not Given Quetiapine Fumarate (Quetiapine Fumarate 50 Mg Tablet) 50 mg PO Q4H PRN PRN Reason: agitation Last Admin: 08/05/23 16:20 Dose: 50 mg Quetiapine Fumarate (Quetiapine Fumarate 100 Mg Tablet) 100 mg PO BID@0830,1330 [facility] Last Admin: 08/07/23 13:33 Dose: 100 mg Quetiapine Fumarate (Quetiapine Fumarate 400 Mg Tablet) 400 mg PO BEDTIME [facility] Last Admin: 08/06/23 20:41 Dose: 400 mg Sodium Chloride (Sodium Chloride 0.65 % Nasal 44 Ml Sprbtl) 1 spray NOSTRIL-B Q1H PRN PRN Reason: dry skin, nails Trazodone HCl (Trazodone Hcl 50 Mg Tablet) 50 mg PO BEDTIME PRN PRN Reason: Insomnia Allergies Allergies Allergy/AdvReac Type Severity Reaction Status Date / Time acetaminophen [From Percocet] Allergy Unknown Itching Verified 08/02/23 13:14 olanzapine Allergy Unknown other Verified 08/02/23 13:14 oxycodone [From Percocet] Allergy Unknown Itching Verified 08/02/23 13:14 Assessment & Plan Assessment & Plan (1) Bipolar 1 disorder, mixed, severe: Status: Acute Code(s): F31.63 - Bipolar disorder, current episode mixed, severe, without psychotic features Assessment and Plan: 08/06/23 Add Haldol 5 mg bid prn severe psychosis, manic sx. [place] Nasal [place] prn Eucerin Cream to feet Asking for treatment of Onychomycosis- will need podiatry referral upon discharge. 08/07/23 Continue treatment Plan The patient is an elderly female with a past history of bipolar disorder who was brought to the facility since she complained exacerbation of depression with suicidal ideation but it was clear that the patient had manic symptoms. The patient does not have current providers in the area and she had been on compliant with treatment. Even though that she has having a mixed episode with depression and zena, the patient has enough insight to look after help. She signed herself into the hospital and she was able to understand [place] warning. Plan 1. Continue with regular medications. 2. Continue with medical treatment. 3. Please continue Seroquel 100 mg p.o. t.i.d. as mood stabilizers. We have been titrating the Seroquel at night on August 04 we are increasing up to 300 mg p.o. q.h.s. and keep 100 mg p.o. b.i.d.. On August 05 we increased up to 400 mg p.o. q.h.s. and keep 100 mg p.o. b.i.d. 4. Gather collateral information. 5. Continue 15 minute checks. 6. Reassessment with results. Informed Consent: does not understand Reason for continued inpatient stay Substantial Risk for: rapid decompensation Time Spent With Patient Time: Total time managing care of this patient today ____ minutes.
[2023-08-07 18:00] VITALS: BP 167/93; PULSE 98; RESP 18; TEMP 36.3; O2SAT 99
[2023-08-07] MEDS: Mineral Oil/Petrolatum,White 106 GM Tube 1 APPL TOPICAL (20:34)
[2023-08-07] MEDS: QUEtiapine Fumarate 400 MG TABLET PO (20:35)
[2023-08-08] MEDS: Albuterol Sulfate 90 MCG 8 GM INHALER 2 PUFF INHALE (03:50)
[2023-08-08 08:24] VITALS: BP 141/84; PULSE 98; RESP 15; TEMP 36.7; O2SAT 96
[2023-08-08] MEDS: Fluticasone/Umeclidinium/Vilanterol 200/62.5/25 BLST.W.DEV 1 PUFF INHALE (08:25)
[2023-08-08] MEDS: Mineral Oil/Petrolatum,White 106 GM Tube 1 APPL TOPICAL (08:26)
[2023-08-08] MEDS: QUEtiapine Fumarate 100 MG TABLET PO (08:26)
--- NOTE | 2023-08-08 09:17 | P.DS_ITS ---
DS: Providers Provider Date of Service: 08/08/23 Date of admission: 08/02/23 13:04 Date of discharge: 08/08/23 Primary care physician: Mary Physician Attending physician on discharge: Boby Perry DS: Diagnosis Discharge Diagnosis (1) Bipolar 1 disorder, mixed, severe: Status: Acute DS: Medications Discharge Medications Home Medications: Home Medications Medication Instructions Recorded Confirmed albuterol sulfate 90 mcg/actuation 2 puff inhalation Q4H PRN dyspnea 07/30/23 07/30/23 aerosol inhaler (Ventolin HFA) fluticasone fur. 200 mcg-umeclid 1 ea inhalation DAILY 07/30/23 07/30/23 62.5 mcg-vilant 25 mcg inhalat.powder (Trelegy Ellipta) naproxen 500 mg tablet 500 mg PO BID PRN pain 07/30/23 07/30/23 nicotine 21 mg/24 hr daily 1 patch topical DAILY 07/30/23 07/30/23 transdermal patch quetiapine 25 mg tablet 25 mg PO BID 07/30/23 07/30/23 Mental Status Exam Mental Status Exam Patient Appearance: Well Grooomed and Appropriate Patient Orientation: Person, Place and Situation Level of Consciousness: Awake Patient Behavior: Appropriate Mood Description: Calm Affect Description: Labile Patient Cognition Impaired: No Ability to Follow Directions: Good Speech Pattern: Clear Hallucinations: None Delusions: Grandiose Thought Process: Racing and Distracted Thought Content: positive for Circumstantial Judgement: Fair Data Data Completed and Pending Completed studies during hospitalization [Text1]: 08/02/23 08/03/23 07:54 07:52 Sodium 138 Potassium 4.2 Chloride 103 Carbon Dioxide 27 Anion Gap 12 BUN 24 H Creatinine 0.78 Estim Creat Clear Calc 63.0 Estimated GFR > 60 Fasting Glucose 104 H Estimat Average Glucose 97 Hemoglobin A1c % 5.0 Calcium 8.9 Total Bilirubin 0.3 AST 18 ALT 14 Alkaline Phosphatase 70 Total Protein 6.3 L Albumin 3.9 Triglycerides 278 H Cholesterol 190 LDL Cholesterol, Calc 90 HDL Cholesterol 45 Vitamin B12 339 TSH 0.46 COVID-19 (YULISSA) Negative COVID-19 Clin Com See Note DS: Summary Hospital Course Hospital Course: The patient is a 68-year-old female with a past history of bipolar disorder who was brought to the emergency room after she called 911 complaining of suicidal ideation. She was seen by another care team in a different hospital and transferring to this facility for psychiatric stabilization. Please see the HPI of the admission note for further details. On admission the patient showed signs and symptoms of manic episode. She was able to contract for safety and we discussed risks, benefits, side-effects and alternatives and she agreed to start Seroquel to target mood lability. The patient was fully compliant with treatment and she was able to participate in groups and other therapeutic activities in the facility. The patient presented some manic symptoms and grandiose delusions but she was safe in the community. We called the [facility] police department and she did not have any open cases. She will wanted to sign a 3 day notice and she wanted to be discharged as soon as possible since there were no safety concerns discharge planning was discussed. Time spent discussing smoking cessation with patient: 3 to 10 minutes Status at Discharge Cognitive/behavioral status at discharge: At baseline Functional status at discharge: independent ambulation Overall status at discharge: patient is back to baseline Time Spent with Patient Time attestation: Total time managing care of this patient today _30___ minutes. Time spent: Less than 30 minutes Discharge Plan Discharge Anticipated Discharge Date/Time: 08/08/23 10:00 Patient Disposition: Home, Self-Care Discharge Diagnosis: Bipolar disorder I most recent episode manic Referrals: Nikolai Hager APRN [Registered Nurse] - 08/26/23 1:15 pm (This appointment is by Telehealth. ) Melody Yepez APRN [Registered Nurse] - 08/12/23 1:30 pm Physician,Unknown J [Primary Care Provider] - 1 Week Discharge Medications: New quetiapine 100 mg Tablet 100 mg PO BID@0830,1330 30 Days Qty: 60 0RF lorazepam 1 mg Tablet 1 mg PO Q6H PRN (Reason: Anxiety, agitation) 30 Days Qty: 60 0RF Deep Sea Nasal 0.65 % Aerosol,[place] 1 spray intranasal Q1H PRN (Reason: dry skin, nails) Qty: 44 0RF quetiapine 400 mg Tablet 400 mg PO BEDTIME 30 Days Qty: 30 0RF Dermacerin Cream 1 appl topical BID Qty: 454 0RF Protocol: Apply to: Apply to: feet lorazepam [Ativan] 1 mg tablet 1 mg PO BID PRN (Reason: anxiety) Qty: 60 0RF Continued albuterol sulfate [Ventolin HFA] 90 mcg/actuation HFA aerosol inhaler 2 puff INHALATION Q4H PRN (Reason: dyspnea) Qty: 1 0RF naproxen 500 mg tablet 500 mg PO BID PRN (Reason: pain) 30 Days Qty: 60 0RF Trelegy Ellipta 200-62.5-25 mcg blister with device 1 ea INHALATION DAILY 30 Days Qty: 30 0RF Discontinued quetiapine 25 mg tablet 25 mg PO BID nicotine 21 mg/24 hr patch 24 hour 1 patch topical DAILY Discharge Orders: Discharge Order (Routine); Ordered 08/08/23 Ordered By: Boby Perry Diet: Advance to usual diet Activity on Discharge: As tolerated Stand Alone Forms: Patient Portal Discharge page Care Plan Goals: Care plan [email or web address] achieved on this admission Health Concerns: Continue treatment with outpatient providers. Plan of Treatment: Continue treatment of bipolar disorder as an outpatient with community providers. Assessment: Elderly female with a past history of Bipolar disorder, admitted for manic symptoms. We started the titration of Seroquel up to 600mg/day with no side effects. No safety concerns at this moment, the patient signed a 3 day notice, discharge to self with outpatient providers.
== END 2023-08-08 10:38 | disposition home or self-care (01) | DRG 885 ==
LOC: HO.ED 18:16 → HO.PGERI 08-02 13:23
PROVIDERS: Emergency Medicine; Student in an Organized Health Care Education/Training Program; Admitting Provider Social Worker; Emergency Provider Emergency Medicine Emergency Medical Services; Visit Provider Social Worker
DX: F31.63 Bipolar disorder, current episode mixed, severe, without psychotic features (principal); R45.851 Suicidal ideations; J44.9 Chronic obstructive pulmonary disease, unspecified; F17.210 Nicotine dependence, cigarettes, uncomplicated; Z20.822 Contact with and (suspected) exposure to COVID-19; Z71.6 Tobacco abuse counseling; Z79.899 Other long term (current) drug therapy
CPT/HCPCS: 36415; 80053; 80061; 80143; 80179; 80307; 81001; 82607; 83036; 84443; 85025; 87635; 93005; 99285; J1630; J2250; S9485

== ENCOUNTER → 2023-07-30 11:03 | Outpatient (BNV) | payer MEDICARE, MEDICAID, SELFPAY | PROVIDERS: Emergency Provider Emergency Medicine Emergency Medical Services; Visit Provider Social Worker | DX: F31.63 Bipolar disorder, current episode mixed, severe, without psychotic features (principal) | CPT/HCPCS: 90792; 99231; 99232; 99238; 99285 ==

== ENCOUNTER → 2023-08-01 20:37 | Outpatient (BNV) | payer MEDICARE, MEDICAID, SELFPAY | PROVIDERS: Emergency Provider Emergency Medicine Emergency Medical Services; Visit Provider Internal Medicine | DX: Z01.810 Encounter for preprocedural cardiovascular examination (principal) | CPT/HCPCS: 93010 ==

== ENCOUNTER 2023-09-06 06:25 | Outpatient (REF) | payer OTHER, SELFPAY ==
--- NOTE | ~2023-09-06 | FL_ITS ---
EXAMINATION: XR FLUOROSCOPY WITH IMAGES CLINICAL INFORMATION: Spondylosis without myelopathy or radiculopathy, lumbar region COMPARISON: None available. TECHNIQUE: Fluoroscopy Supervised By: Dr. Anupama Mahaajn. Fluoroscopy Time: 48.4 seconds Cumulative Dose: 14.825 mGy-cm DAP: 6.4485 Gy-cm2 Images: 6. FINDINGS: Imaging demonstrates various needle positions over the lumbar spine with contrast injected at each site. Please see Dr. Anupama Mahajan's procedure report for full details. FL/FL guidance in treatment room IMPRESSION: Fluoroscopy and spot films provided during lumbar procedure.
== END 2023-09-06 06:26 | disposition home or self-care (01) ==
LOC: CF 06:25
PROVIDERS: Visit Provider Anesthesiology
DX: M47.816 Spondylosis without myelopathy or radiculopathy, lumbar region (principal); G62.9 Polyneuropathy, unspecified; M53.3 Sacrococcygeal disorders, not elsewhere classified; M51.36 Other intervertebral disc degeneration, lumbar region; M54.50 Low back pain, unspecified
CPT/HCPCS: 64493; 64494; J2795; Q9967

== ENCOUNTER 2023-09-06 14:35 | Outpatient (AMB) | payer OTHER, SELFPAY ==
[2023-09-06 14:36] VITALS: BP 120/82; PULSE 85; RESP 18; O2SAT 97; BMI 28.5
--- NOTE | 2023-09-06 14:36 | MHC.OFFVIS ---
Intake Vital Signs 09/06/23 14:36 09/06/23 15:16 Height 5 ft 3 in Weight 161 lb BMI 28.5 BP 120/82 120/82 Blood Pressure Location Lt brachial Lt brachial Position Sitting Sitting Respiration 18 20 Pulse 85 85 Pulse Source Pulse Oximeter Pulse Oximeter Pulse Oximetry (%) 97 97 Oxygen Delivery Method Room Air Room Air Comment Pe-Op Pre-Op Intake Visit Reasons: BILATERAL DIAGNOSTIC L3, L4, DRL5 MBB Allergies acetaminophen [From Percocet] Allergy (Unknown, Verified 08/02/23 13:14) Itching olanzapine Allergy (Unknown, Verified 08/02/23 13:14) other oxycodone [From Percocet] Allergy (Unknown, Verified 08/02/23 13:14) Itching PFSH Medical History Lumbar degenerative disc disease Chronic thoracic spine pain Depression UTI (urinary tract infection) COPD (chronic obstructive pulmonary disease) Surgical History H/O lumpectomy Social History Household Members: None Housing: Apartment Do you presently have visiting nurse or other home services: No Alcohol intake: current Patient Tobacco Use Status: Current everyday Tobacco user Tobacco use type: Cigarette Cigarette Packs Per Day: 1 Cigarettes Per Day: 20.0 Years Smoked: 25 e-Cigarette/Vaping Use: Never Used Second Hand Smoke Exposure: No Substance Use Type: Crack/Cocaine service: No Sexual orientation: Straight/Heterosexual Physical Exam Vital Signs: Last Vital Signs Pulse 85 09/06/23 15:16 Resp 20 09/06/23 15:16 BP 120/82 09/06/23 15:16 Pulse Ox 97 09/06/23 15:16 Oxygen Delivery Method Room Air 09/06/23 15:16 BMI result Body Mass Index 28.5 Assessment & Plan Assessment & Plan (1) Chronic thoracic spine pain: Code(s): M54.6 - Pain in thoracic spine; G89.29 - Other chronic pain (2) Thoracolumbar back pain: Code(s): M54.50 - Low back pain, unspecified; M54.6 - Pain in thoracic spine (3) Lumbar degenerative disc disease: Code(s): M51.36 - Other intervertebral disc degeneration, lumbar region (4) Sacroiliac joint pain: Code(s): M53.3 - Sacrococcygeal disorders, not elsewhere classified (5) Peripheral neuropathy: Code(s): G62.9 - Polyneuropathy, unspecified (6) Spondylosis of lumbar region without myelopathy or radiculopathy: Code(s): M47.816 - Spondylosis without myelopathy or radiculopathy, lumbar region Plan: Diagnostic medial branch block L3,L4 dorsal ramus L5 bilateral.? ? ?Informed consent was explained to the patient. All questions were explained and? answered.? The patient was taken inside the operating room where she was positioned prone on the operating table. Time-out was performed delineating correct site, side, the nature of the procedure, patient's allergy, . All operating room staff was participating in OR time-out procedure. ? ? The lower back was prepped with ChloraPrep and draped with sterile towels.? C-arm was brought over the operating field and sq picture of L4-, L5 vertebra and S1 AREA were delineated on the screen.? Point of interest were delineated as confluence of superior articular process of L4 and L5 vertebra bilaterally with corresponding transverse processes as well as confluence of the sacral alae bilaterally with superior articular process of S1.? The projection of the point of interest to the skin were injected with the small amount of local anesthetic lidocaine 2% 1-1.5 cc.? After that 22 gauge 3.5 inch spinal needle was driven sequentially to the points of interest in tunnel vision fashion. After needles gently contacted the bone at the point of interests the needle was injected with small amount of the contrast.? The injection of the contrast did not demonstrate any intravascular or intrathecal spread of the contrast.? After that injection of the? ropivacaine 0.5%-1cc was performed at each needle location.??after that the needles were removed and Bandaids were applied. ? Upon completion of the injections? needle was? removed and sterile Band-Aids were applied.? The patient tolerated procedure very well. Plan Thoracic and lumbar spine imaging discussed with patient today in greater detail, report is noted above. Discussed interventional treatment for mid and lower back pain and peripheral neuropathy, including diagnostic lumbar medial branch blocks L3- L4 DR L5 MBBs and thoracic epidural steroid injection with local and fluoroscopy. Previously we also discussed peripheral nerve stimulation with Sprint device for axial low back pain and topical 8% capsaicin (Qutenza) application for peripheral neuropathy. Patient is moving to [facility] for 5 months for work assignment and requests referral to [facility]. She will notify our office with her date of scheduled appointment there by the end of this week. Once this confirmed, we will place referral to [facility] per patient's request. All questions and concerns have been answered and patient agreed with the plan. Follow up as needed. I hereby testify that I spent 16 minutes in conversation with this patient as well as with planning and coordinating care for this patient and organizing this note. Orders: Orders FL guidance in treatment room 09/06/23 M47.816 - Spondylosis without myelopathy or radiculopathy, lumbar region Coding Level of Care Code Procedure Only Diagnoses Chronic thoracic spine pain M54.6; G89.29 Thoracolumbar back pain M54.50; M54.6 Lumbar degenerative disc disease M51.36 Sacroiliac joint pain M53.3 Peripheral neuropathy G62.9 Spondylosis of lumbar region without myelopathy or radiculopathy M47.816
[2023-09-06 15:16] VITALS: BP 120/82; PULSE 85; RESP 20; O2SAT 97
== END 2023-09-06 15:11 | disposition home or self-care (01) ==
LOC: HO.PMCPRC 14:35
PROVIDERS: Visit Provider Anesthesiology
DX: M47.816 Spondylosis without myelopathy or radiculopathy, lumbar region (principal)
CPT/HCPCS: 64493; 64494

== ENCOUNTER 2023-09-13 12:59 | Outpatient (AMB) | payer OTHER, SELFPAY ==
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
[2023-09-13 13:07] VITALS: BP 110/58; PULSE 84; O2SAT 98; BMI 28.3
== END 2023-09-13 13:29 | disposition home or self-care (01) ==
PROVIDERS: Visit Provider Nurse Practitioner Family
DX: M47.816 Spondylosis without myelopathy or radiculopathy, lumbar region (principal); M51.36 Other intervertebral disc degeneration, lumbar region; G89.29 Other chronic pain; M53.3 Sacrococcygeal disorders, not elsewhere classified
CPT/HCPCS: 99214

== ENCOUNTER → 2023-09-13 12:59 | Outpatient (BNVA) | payer OTHER, MEDICAID, SELFPAY | PROVIDERS: Visit Provider Nurse Practitioner Family | DX: M47.816 Spondylosis without myelopathy or radiculopathy, lumbar region (principal); M51.36 Other intervertebral disc degeneration, lumbar region; M53.3 Sacrococcygeal disorders, not elsewhere classified | CPT/HCPCS: 99212 ==

== ENCOUNTER 2023-10-18 06:12 | Outpatient (REF) | payer OTHER, SELFPAY ==
--- NOTE | ~2023-10-18 | FL_ITS ---
EXAMINATION: XR FLUOROSCOPY WITH IMAGES CLINICAL INFORMATION: Sacrococcygeal disorders. COMPARISON: None available. TECHNIQUE: Fluoroscopy Supervised By: Dr. Anupama Mahajan. Fluoroscopy Time: 0.1 minutes. Cumulative Dose: 1.51 mGy. DAP: 0.0262 Gy-cm2. Images: 1. FINDINGS: A needle is present over the SI joint with contrast media present in and around the joint. FL/FL guidance in treatment room IMPRESSION: Fluoroscopy and spot films provided during SI joint injection.
== END 2023-10-18 06:13 | disposition home or self-care (01) ==
LOC: CF 06:12
PROVIDERS: Visit Provider Anesthesiology
DX: M53.3 Sacrococcygeal disorders, not elsewhere classified (principal); M47.816 Spondylosis without myelopathy or radiculopathy, lumbar region; M51.36 Other intervertebral disc degeneration, lumbar region
CPT/HCPCS: 27096; J2795; J3301; Q9967

== ENCOUNTER 2023-10-18 09:19 | Outpatient (AMB) | payer OTHER, SELFPAY ==
--- NOTE | 2023-10-18 09:28 | MHC.OFFVIS ---
Vital Signs 10/18/23 09:29 10/18/23 11:05 Height 5 ft 3 in Weight 160 lb BMI 28.3 BP 132/86 122/70 Blood Pressure Location Lt brachial Lt brachial Position Sitting Sitting Respiration 18 20 Pulse 97 86 Pulse Source Pulse Oximeter Pulse Oximeter Pulse Oximetry (%) 98 96 Oxygen Delivery Method Room Air Room Air Comment Pre-Op Post-Op Intake Visit Reasons: RIGHT THERAPEUTIC SIJ INJECTION Allergies acetaminophen [From Percocet] Allergy (Unknown, Verified 09/13/23 13:05) Itching olanzapine Allergy (Unknown, Verified 09/13/23 13:05) other oxycodone [From Percocet] Allergy (Unknown, Verified 09/13/23 13:05) Itching PFSH Medical History Lumbar degenerative disc disease Chronic thoracic spine pain Depression UTI (urinary tract infection) COPD (chronic obstructive pulmonary disease) Surgical History H/O lumpectomy Social History Household Members: None Housing: Apartment Do you presently have visiting nurse or other home services: No Alcohol intake: current Patient Tobacco Use Status: Current everyday Tobacco user Tobacco use type: Cigarette Cigarette Packs Per Day: 1 Cigarettes Per Day: 20.0 Years Smoked: 25 e-Cigarette/Vaping Use: Never Used Second Hand Smoke Exposure: No Substance Use Type: Crack/Cocaine service: No Sexual orientation: Straight/Heterosexual Physical Exam Vital Signs: Last Vital Signs Pulse 86 10/18/23 11:05 Resp 20 10/18/23 11:05 BP 122/70 10/18/23 11:05 Pulse Ox 96 10/18/23 11:05 Oxygen Delivery Method Room Air 10/18/23 11:05 BMI result Body Mass Index 28.3 Assessment & Plan Assessment & Plan (1) Lumbar spondylosis: Code(s): M47.816 - Spondylosis without myelopathy or radiculopathy, lumbar region Category: Medical (2) Lumbar degenerative disc disease: Code(s): M51.36 - Other intervertebral disc degeneration, lumbar region Category: Medical (3) Chronic thoracic spine pain: Code(s): M54.6 - Pain in thoracic spine; G89.29 - Other chronic pain Category: Medical (4) Sacroiliac joint pain: Code(s): M53.3 - Sacrococcygeal disorders, not elsewhere classified Category: Medical (5) Spondylosis of lumbar region without myelopathy or radiculopathy: Code(s): M47.816 - Spondylosis without myelopathy or radiculopathy, lumbar region Category: Medical Plan: Right therapeutic sacroiliac joint injection Informed consent was explained thoroughly to the patient. All questions about benefits and risks for the procedure were answered. Patient came to the operating room and was positioned prone on the operating table with the pillow under the pelvis. Time out was performed delineating name and of the patient, allergies and the nature of the procedure. The lower back and buttocks of the patient were prepped with ChloraPrep prepped and draped with sterile utility towels. C-arm was brought over the operating field and sq picture of patient's pelvis was demonstrated on the screen. For the right joint tilting C-arm contralateral to the site of the joint the most posterior portion of the joints was superimposed with anterior silhouette of the joint. Skin was injected in the projection of the joint slightly medial to the location of the joint with 25 gauge 1/2 inch needle using local lidocaine 2% .After that 22 gauge 3 and 1/2 inch needle was driven to the right joint in tunnel vision fashion. When needle entered the joint capsule injection of the contrast was performed demonstrating intra-articular and minimally periarticular spread of the contrast. After that 4 cc. of ropivacaine 0.5% mixed with Kenalog 40 mg was injected into the joint. Upon completion of the injections the needle was removed Sterile dressing was applied. Upon completion of the injection patient was taken outside of the operating room to the recovery room where recovered uneventfully. Plan Patient is status post diagnostic bilateral lumbar medial branch blocks on 09/06/23 with 100% ongoing pain relief for axial low back pain. She would like to repeat same injections for potential RFA procedure when her back pain returns to baseline. She will notify our office. In meantime, patient would like to proceed with Left Therapeutic Sacroiliac Joint Injection with local and fluoroscopy. We also discussed PNS trial, RFA and SI stabilization procedures for which patient is not interested as she has plans to temporary visit [place] in September. Expectations, risks and benefits were reviewed. Patient is aware she will be contacted to schedule this procedure. Script provided for Physical Therapy in [facility] per patient's request to address SIJ pain and mild leg discrepancy. Script provided today. All questions were answered and the patient is in agreement of plan. Follow-up after injections and sooner as needed. Orders: Orders FL guidance in treatment room Today M53.3 - Sacrococcygeal disorders, not elsewhere classified Coding Level of Care Code Procedure Only Diagnoses Lumbar spondylosis M47.816 Lumbar degenerative disc disease M51.36 Chronic thoracic spine pain M54.6; G89.29 Sacroiliac joint pain M53.3 Spondylosis of lumbar region without myelopathy or radiculopathy M47.816
[2023-10-18 09:29] VITALS: BP 132/86; PULSE 97; RESP 18; O2SAT 98; BMI 28.3
[2023-10-18 11:05] VITALS: BP 122/70; PULSE 86; RESP 20; O2SAT 96
== END 2023-10-18 10:58 | disposition home or self-care (01) ==
LOC: HO.PMCPRC 09:19
PROVIDERS: Visit Provider Anesthesiology
DX: M53.3 Sacrococcygeal disorders, not elsewhere classified (principal)
CPT/HCPCS: 27096

== ENCOUNTER 2023-11-15 09:46 | Outpatient (AMB) | payer OTHER, SELFPAY ==
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
[2023-11-15 09:52] VITALS: BP 136/80; PULSE 104; O2SAT 98; BMI 31.0
== END 2023-11-15 10:11 | disposition home or self-care (01) ==
PROVIDERS: Visit Provider Nurse Practitioner Family
DX: M54.14 Radiculopathy, thoracic region (principal); M62.838 Other muscle spasm; M53.3 Sacrococcygeal disorders, not elsewhere classified; M54.50 Low back pain, unspecified; M54.6 Pain in thoracic spine; M51.34 Other intervertebral disc degeneration, thoracic region
CPT/HCPCS: 99214

== ENCOUNTER → 2023-11-15 09:46 | Outpatient (BNVA) | payer OTHER, SELFPAY | PROVIDERS: Visit Provider Nurse Practitioner Family | DX: M54.14 Radiculopathy, thoracic region (principal); M62.838 Other muscle spasm; M53.3 Sacrococcygeal disorders, not elsewhere classified; M54.50 Low back pain, unspecified; M54.6 Pain in thoracic spine; M51.34 Other intervertebral disc degeneration, thoracic region | CPT/HCPCS: 99212 ==

== ENCOUNTER 2023-12-07 09:10 | Outpatient (REF) | payer OTHER, SELFPAY ==
--- NOTE | ~2023-12-07 | MM_ITS ---
EXAMINATION: BONE DENSITOMETRY CLINICAL INDICATION: Postmenopausal. COMPARISON: This is the patient's baseline examination. TECHNIQUE: Using a [employer] DXA System (analysis version: 14.10) manufactured by [employer], dual-energy x-ray absorptiometry was performed of the lumbar spine and left hip. The images are of good technical quality. Summary results are attached. FINDINGS: AP SPINE L1-L4: BMD 1.11 g/cm2, Z-score 0.3, T-score -0.5, normal. LEFT FEMUR, NECK: BMD 1.018 g/cm2, Z-score 1.0, T-score -0.1, normal. LEFT FEMUR, TOTAL: BMD 0.987 g/cm2, Z-score 0.7, T-score -0.2, normal. IDENTIFIED RISK FACTORS: Menopause, tobacco use (current smoker). HISTORY OF FRACTURE: None listed. MEDICATIONS: None listed. MM/XR DEXA axial skeleton IMPRESSION: 1. DIAGNOSIS: Normal bone density based on the lowest T-score value of -0.5 in the lumbar spine applying World Health Organization criteria. 2. 10-YEAR FRACTURE RISK PREDICTION, FRAX: According to the guidelines, FRAX calculation should only be performed on patients in the osteopenia bone density category. Therefore, FRAX was not performed on this patient. 3. Treatment Recommendations: NOF guidelines recommend consideration for treatment in postmenopausal women and men age 50 and older presenting with the following: -A hip or vertebral (clinical or morphometric) fracture. -T-score less than or equal to -2.5 at the femoral neck or spine after appropriate evaluation to exclude secondary causes. -Low bone mass at the hip or spine and a 10-year fracture probability by FRAX of greater than or equal to 3% for hip fracture or greater than or equal to 20% for major osteoporotic fracture based on the [place] adapted WHO algorithm. 4. Other Recommendations: All treatment decisions require clinical judgment and consideration of individual patient factors, including patient preferences, comorbidities, previous drug use, risk factors not captured in the FRAX model (e.g. frailty, falls, vitamin D deficiency, increased bone turnover, interval significant decline in bone density) and possible under or overestimation of fracture risk by FRAX. FUTURE SCAN RECOMMENDATION: People with diagnosed cases of osteoporosis or at high risk for fracture should have regular bone mineral density tests. For patients eligible for Medicare, routine testing is allowed once every 2 years. The testing frequency can be increased to one year for patients who have rapidly progressing disease, those who are receiving or discontinuing medical therapy to restore bone mass, or have additional risk factors.
== END 2023-12-07 09:11 | disposition home or self-care (01) ==
LOC: HO.MAMMO 09:10
PROVIDERS: PCP Registered Nurse; Visit Provider Nurse Practitioner Family
DX: Z13.820 Encounter for screening for osteoporosis (principal); Z78.0 Asymptomatic menopausal state
CPT/HCPCS: 77080

== ENCOUNTER 2023-12-27 06:18 | Outpatient (REF) | payer OTHER, SELFPAY | END 2023-12-27 06:19 | disposition home or self-care (01) | LOC: CF 06:18 | PROVIDERS: Visit Provider Anesthesiology | DX: M54.14 Radiculopathy, thoracic region (principal); M62.838 Other muscle spasm; M53.3 Sacrococcygeal disorders, not elsewhere classified; M54.50 Low back pain, unspecified; M51.34 Other intervertebral disc degeneration, thoracic region | CPT/HCPCS: 99212 ==

== ENCOUNTER 2023-12-27 13:07 | Outpatient (AMB) | payer OTHER, SELFPAY ==
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
== END 2023-12-27 13:36 | disposition home or self-care (01) ==
PROVIDERS: PCP Registered Nurse; Visit Provider Anesthesiology
DX: M54.14 Radiculopathy, thoracic region (principal); M62.838 Other muscle spasm; M53.3 Sacrococcygeal disorders, not elsewhere classified; M54.50 Low back pain, unspecified; M54.6 Pain in thoracic spine; M51.34 Other intervertebral disc degeneration, thoracic region
CPT/HCPCS: 99213

== ENCOUNTER 2024-02-01 09:15 | Outpatient (AMB) | payer OTHER, SELFPAY ==
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
[2024-02-01 09:24] VITALS: BP 132/70; PULSE 115; RESP 14; O2SAT 95; BMI 38.3
== END 2024-02-01 09:49 | disposition home or self-care (01) ==
PROVIDERS: PCP Registered Nurse; Visit Provider Anesthesiology
DX: M47.816 Spondylosis without myelopathy or radiculopathy, lumbar region (principal); M46.1 Sacroiliitis, not elsewhere classified
CPT/HCPCS: 99214

== ENCOUNTER → 2024-02-01 09:15 | Outpatient (BNVA) | payer OTHER, SELFPAY | PROVIDERS: PCP Registered Nurse; Visit Provider Anesthesiology | DX: M46.1 Sacroiliitis, not elsewhere classified (principal); M47.816 Spondylosis without myelopathy or radiculopathy, lumbar region | CPT/HCPCS: 99212 ==

== ENCOUNTER 2024-02-03 13:04 | Outpatient (REF) | payer OTHER, SELFPAY ==
--- NOTE | ~2024-02-03 | CT_ITS ---
EXAMINATION: CT PELVIS WITHOUT CONTRAST CLINICAL INFORMATION: Sacrococcygeal disorder. COMPARISON: None available. TECHNIQUE: Helical scanning was performed with submillimeter collimation through the pelvis. Sagittal and coronal multiplanar 2-D reconstructions were obtained. This CT examination was performed using dose optimization techniques as appropriate, variously including the following: *Automated exposure control *Adjustment of mA and/or kV according to patient size (this includes techniques or standardized protocols for targeted exams where dose is matched to indication/reason for exam; i.e. extremities or head) *Use of iterative reconstruction technique DLP: 805 mGy-cm FINDINGS: Mild bilateral SI joint arthritis, with sclerosis marginating bilateral joints. No evidence of erosive changes. No significant effusion is evident by CT. There is small air in bilateral SI joints, nonspecific, could reflect sequela of vacuum phenomenon. Left hip joint space narrowing. Acetabular marginal osteophytes, subchondral sclerosis and cysts. There is mixed lucency and sclerosis in the femoral head. There is an area of lucency measuring 1.4 cm transverse in the subchondral femoral head. Findings consistent with moderate arthritis. Focus of avascular necrosis in the femoral head cannot be excluded. Mild right hip joint space narrowing, subchondral sclerosis correlating with mild-moderate arthritis. Mild symphysis pubis arthritis. No visible acute fracture or dislocation. No measurable muscle tear is identified. Severe L5-S1 disc degeneration. Air in the disc space could reflect reactive phenomenon. Facet degeneration at L4-L5, L5-S1. Urinary bladder is partially distended appearing unremarkable. Colonic diverticulosis without diverticulitis. Normal appendix. No pathologically enlarged lymph nodes are seen. CT/CT bony pelvis IMPRESSION: 1. Mild bilateral SI joint arthritis. There is air in bilateral SI joints, nonspecific, could represent vacuum phenomenon. Clinically correlate. 2. Moderate left hip arthritis. Patchy lucency and sclerosis in the femoral head could be related to arthritis. Component of avascular necrosis cannot be excluded. Further evaluation with MRI as clinically warranted. 3. Mild-moderate right hip arthritis. 4. Severe L5-S1 disc degeneration. Air in the disc space, probable vacuum phenomenon. 5. Colonic diverticulosis without diverticulitis. 6. Additional findings as above. Study is assigned for dictation on February 28, 2024. Electronically signed by: Arturo Lopez MD 02/28/2024 04:12 PM EDT
== END 2024-02-03 13:05 | disposition home or self-care (01) ==
LOC: HO.CT 13:04
PROVIDERS: Visit Provider Anesthesiology
DX: M53.3 Sacrococcygeal disorders, not elsewhere classified (principal); M46.1 Sacroiliitis, not elsewhere classified
CPT/HCPCS: 72192

== ENCOUNTER 2024-03-05 07:25 | Outpatient (REF) | payer OTHER, SELFPAY ==
--- NOTE | ~2024-03-05 | CT_ITS ---
EXAMINATION: CT LUMBAR SPINE WITHOUT CONTRAST CLINICAL INFORMATION: Sacroiliitis not otherwise classified. COMPARISON: Pelvic CT 02/03/2024 TECHNIQUE: Unenhanced CT of the lumbar spine. This CT examination was performed using dose optimization techniques as appropriate, variously including the following: *Automated exposure control *Adjustment of mA and/or kV according to patient size (this includes techniques or standardized protocols for targeted exams where dose is matched to indication/reason for exam; i.e. extremities or head) *Use of iterative reconstruction technique DLP; 1151 mGy-cm FINDINGS: 5 lumbar type vertebral bodies are identified. Vertebral body height and alignment are normal in appearance. No paraspinous soft tissue inflammatory changes identified. Partial visualization is made of moderate scattered aortoiliac calcific atherosclerosis. Partially visualized mild posterior broad-based disc bulge T11-T12 with midline annular calcification. L1-L2: Normal intervertebral disc height. No central or foraminal stenoses noted. L2-L3: No central or foraminal stenoses identified. Normal intervertebral disc height. L3-L4: No central or foraminal stenoses identified. Normal intervertebral disc height. L4-L5: Partially visualized mild posterior broad-based disc bulge resulting in minimal effacement of the ventral thecal sac CSF space. Mild bilateral facet and ligamentum flavum hypertrophy. Mild bilateral facet joint vacuum phenomenon. L5-S1: Intervertebral disc demonstrates approximately 50% overall loss of craniocaudal height and is associated with vacuum phenomena. Partial visualization is made of a mild posterior broad-based disc bulge which results in mild central stenosis, moderate left foraminal stenosis and mild right foraminal stenosis. A 50% left foraminal narrowing is present secondary to focal eccentricity of disc bulge within the left neural foramen. The sacroiliac joints demonstrate mild bilateral subchondral sclerosis and minimal anterior osteophytosis. No sacroiliac joint ankylosis identified. No subchondral cyst formation noted in association with the sacroiliac joints. CT/CT lumbar spine wo IV con IMPRESSION: 1. Mild bilateral arthropathy of the sacroiliac joints. Findings are most suspicious for mild osteoarthritis. No specific evidence of inflammatory arthropathy. No sacral iliac joint ankylosis. 2. L5-S1 broad-based disc bulge resulting in moderate left foraminal stenosis, mild central stenosis and mild right foraminal stenosis. 3. L4-L5 mild posterior broad-based disc bulge. 4. L4-L5 and L5-S1 mild-moderate facet osteoarthritis. No evidence of inflammatory arthropathy within the lumbar spine. Electronically signed by: Alejandro Mensah MD 03/08/2024 04:24 PM EDT RP
== END 2024-03-05 07:26 | disposition home or self-care (01) ==
LOC: HO.CT 07:25
PROVIDERS: PCP Registered Nurse; Visit Provider Anesthesiology
DX: M46.1 Sacroiliitis, not elsewhere classified (principal); M47.816 Spondylosis without myelopathy or radiculopathy, lumbar region
CPT/HCPCS: 72131